=== PATIENT | male | born 1970 | race Caucasian/White ===

== ENCOUNTER → 2016-11-04 | Outpatient (CLI) | payer MEDICAID ==
[2016-11-04 08:26] LABS: ALT 56 U/L (21-72); AST 42 U/L (17-59); Anion Gap 10 mmol/L; Blood Urea Nitrogen 18 mg/dL (9-20); Calcium 9.5 mg/dL (8.4-10.2); Carbon Dioxide 30 mmol/L (22-30); Chloride 103 mmol/L (98-107); Cholesterol 269 mg/dL (<200); Creatine Kinase 123 U/L (55-170); Glucose 87 mg/dL (74-99); HDL Cholesterol 58 mg/dL (40-60); Non-African American GFR(MDRD) >60 (>60 ml/min/1.73 sqM); Potassium 4.9 mmol/L (3.5-5.1); Sodium 143 mmol/L (137-145); Triglycerides 150 mg/dL (<150)
== END | disposition home or self-care (01) ==
LOC: LABWHC1 07:26
PROVIDERS: ATTEND Internal Medicine
DX: E78.00 Pure hypercholesterolemia, unspecified (principal)
CPT/HCPCS: 36415; 80048; 80061; 82550; 84450; 84460

== ENCOUNTER → 2016-12-30 | Outpatient (CLI) | payer MEDICAID ==
[2016-12-30 10:13] LABS: ALT 41 U/L (21-72); AST 47 U/L (17-59); Alkaline Phosphatase 50 U/L (38-126); Anion Gap 10 mmol/L; Blood Urea Nitrogen 20 mg/dL (9-20); Calcium 9.4 mg/dL (8.4-10.2); Carbon Dioxide 29 mmol/L (22-30); Chloride 101 mmol/L (98-107); Cholesterol 205 mg/dL (<200); Creatine Kinase 279 U/L (55-170); Glucose 89 mg/dL (74-99); HDL Cholesterol 74 mg/dL (40-60); Non-African American GFR(MDRD) >60 (>60 ml/min/1.73 sqM); Potassium 4.9 mmol/L (3.5-5.1); Sodium 140 mmol/L (137-145); Triglycerides 85 mg/dL (<150)
== END | disposition home or self-care (01) ==
LOC: LABWHC1 08:48
PROVIDERS: ATTEND Internal Medicine
DX: E78.00 Pure hypercholesterolemia, unspecified (principal)
CPT/HCPCS: 36415; 80053; 80061; 82550

== ENCOUNTER → 2017-04-16 | Outpatient (CLI) | payer MEDICAID ==
--- NOTE | 2017-04-16 15:00 | XR ---
EXAMINATION TYPE: XR cervical spine comp DATE OF EXAM: 04/16/2017 TECHNIQUE: Frontal, lateral, oblique, and open mouth view of the cervical spine are obtained. HISTORY: M47.897 spondylosis per order . Chronic left arm numbness per patient. COMPARISON: None FINDINGS: The cervical spine is visualized in its entirety from C1 thru the top of T1 level, it is s traightened in alignment without evidence of acute fracture or dislocation. There is grade 1 retrolis thesis of C5 on C6. The pre-vertebral soft tissue appears within normal limits. The C1-C2 articulati on is within normal limits on the open mouth view. Vertebral body heights are maintained. There is moderate to advanced disc space narrowing with mild s purring at C5-C6 level. There is mild spurring and disc space narrowing C6-C7 level The oblique image s show bilateral neural foraminal narrowing C5-C6 level left greater than right. Overlying soft tissu e is unremarkable. IMPRESSION: Straightening of cervical spine with spondylolisthesis and most prominent degenerative ch christiano C5-C6 level noted.
--- NOTE | 2017-04-16 15:00 | XR ---
EXAMINATION TYPE: XR lumbosacral spine min 4V DATE OF EXAM: 04/16/2017 CLINICAL HISTORY: pain COMPARISON: NONE TECHNIQUE: Frontal, lateral, and oblique images of the lumbar spine are obtained. FINDINGS: There are 5 lumbar type vertebral bodies identified. The lumbar spine shows satisfactory alignment without evidence of acute fracture or dislocation. Vertebral body heights are within normal limits. Disc spaces are moderately narrowed. Scattered ventral spondylosis and lower lumbar facet breezy int arthropathy. The overlying soft tissue appears unremarkable. IMPRESSION: No acute fracture or dislocation is seen in the lumbar spine.ICD 10 NO FRACTURE, INITIAL EVALUATION
== END | disposition home or self-care (01) ==
LOC: RADXRMAIN 14:21
PROVIDERS: ATTEND Internal Medicine
DX: M43.12 Spondylolisthesis, cervical region (principal); M47.812 Spondylosis without myelopathy or radiculopathy, cervical region; M47.897 Other spondylosis, lumbosacral region
CPT/HCPCS: 72050; 72110

== ENCOUNTER → 2017-04-30 | Outpatient (CLI) | payer MEDICAID ==
--- NOTE | 2017-04-30 17:37 | MR ---
EXAMINATION TYPE: MR cervical spine wo con DATE OF EXAM: 04/30/2017 COMPARISON: Plain film 04/16/2017 HISTORY: Neck Pain x10 years M 47.892 TECHNIQUE: Multiplanar, multisequence images of the cervical spine were acquired. C2-C3: No evidence for degenerative disc disease. No disc bulge/herniation or protrusion. No Canal stenosis. Foramina are patent bilaterally. C3-C4: No evidence for degenerative disc disease. No disc bulge/herniation or protrusion. No Canal stenosis. Foramina are patent bilaterally. C4-C5: No evidence for degenerative disc disease. No disc bulge/herniation or protrusion. No Canal stenosis. Foramina are patent bilaterally. C5-C6: Posterior extension of endplate disc complex causes anterior mass effect on the thecal sac. Fo raminal encroachment is present left greater than right. There is lateral extension of endplate disc complex towards the left neural foramen. No significant central stenosis. C6-C7: Left posterior paracentral subligamentous disc herniation causes mass effect on the anterior c ervical cord, moderate central canal stenosis. Mild bilateral foraminal encroachment is present. C7-T1: No evidence for degenerative disc disease. No disc bulge/herniation or protrusion. No Canal stenosis. Foramina are patent bilaterally. Cervical segments are intact. There is normal alignment. Cervical spinal cord is of normal signal. Craniovertebral junction relationships are within normal limits. Cervical vertebral bodies show pre served height. Spondylosis is present at C5-6 with endplate discogenic marrow signal change greater t pinto C6-7. There is associated loss of disc height and signal greatest at C5-6 and C6-7. IMPRESSION: Degenerative disc disease as scribed. Disc herniation C6-7. Endplate disc complex C5-6.
== END | disposition home or self-care (01) ==
LOC: RADMRIMAIN 16:41
PROVIDERS: ATTEND Internal Medicine
DX: M50.223 Other cervical disc displacement at C6-C7 level (principal); M50.30 Other cervical disc degeneration, unspecified cervical region
CPT/HCPCS: 72141

== ENCOUNTER → 2017-06-24 | Outpatient (CLI) | payer MEDICAID ==
[2017-06-24 09:08] LABS: Basophils % (A) 1 %; CH 29.6; CHCM 34.3; Eosinophils # (A) 0.2 k/uL (0-0.7); Eosinophils % (A) 3 %; HCT 44.3 % (39.0-53.0); HDW 2.71; HGB 14.9 gm/dL (13.0-17.5); Luc # (Auto) 0.17; Luc % (Auto) 3; Lymphocytes # (A) 2.1 k/uL (1.0-4.8); Lymphocytes % (A) 37 %; MCH 29.1 pg (25.0-35.0); MCHC 33.6 g/dL (31.0-37.0); MCV 86.7 fL (80.0-100.0); Mean Platelet Volume 6.5; Monocytes # (A) 0.3 k/uL (0-1.0); Monocytes % (A) 6 %; Neutrophils # (A) 2.8 k/uL (1.3-7.7); Neutrophils % (A) 51 %; RBC 5.12 m/uL (4.30-5.90); RDW 12.6 % (11.5-15.5); WBC 5.6 k/uL (3.8-10.6); WBC (Perox) 5.83
[2017-06-24 09:27] LABS: ALT 53 U/L (21-72); AST 40 U/L (17-59); Alkaline Phosphatase 64 U/L (38-126); Anion Gap 11 mmol/L; Blood Urea Nitrogen 18 mg/dL (9-20); Calcium 9.1 mg/dL (8.4-10.2); Carbon Dioxide 27 mmol/L (22-30); Chloride 104 mmol/L (98-107); Cholesterol 202 mg/dL (<200); Creatine Kinase 163 U/L (55-170); Glucose 81 mg/dL (74-99); HDL Cholesterol 73 mg/dL (40-60); Non-African American GFR(MDRD) >60 (>60 ml/min/1.73 sqM); Potassium 4.7 mmol/L (3.5-5.1); Sodium 142 mmol/L (137-145); Total Bilirubin 0.5 mg/dL (0.2-1.3); Total Protein 7.8 g/dL (6.3-8.2)
== END | disposition home or self-care (01) ==
LOC: LABWHC1 08:35
PROVIDERS: ATTEND Internal Medicine
DX: E78.00 Pure hypercholesterolemia, unspecified (principal); J30.9 Allergic rhinitis, unspecified
CPT/HCPCS: 36415; 80053; 80061; 82550; 83036; 84439; 84443; 85025

== ENCOUNTER → 2017-08-10 | Outpatient (CLI) | payer MEDICAID ==
[2017-08-10 10:09] LABS: Basophils % (A) 1 %; CH 29.2; CHCM 33.7; Eosinophils # (A) 0.1 k/uL (0-0.7); Eosinophils % (A) 3 %; HCT 46.3 % (39.0-53.0); HDW 2.58; HGB 14.8 gm/dL (13.0-17.5); Luc % (Auto) 2; Lymphocytes # (A) 1.4 k/uL (1.0-4.8); Lymphocytes % (A) 27 %; MCH 27.8 pg (25.0-35.0); MCHC 31.9 g/dL (31.0-37.0); MCV 87.1 fL (80.0-100.0); Mean Platelet Volume 7.1; Monocytes # (A) 0.3 k/uL (0-1.0); Monocytes % (A) 6 %; Neutrophils # (A) 3.4 k/uL (1.3-7.7); Neutrophils % (A) 63 %; RBC 5.32 m/uL (4.30-5.90); RDW 13.8 % (11.5-15.5); WBC 5.4 k/uL (3.8-10.6); WBC (Perox) 5.39
[2017-08-10 10:15] LABS: Appearance,Urine Clear (Clear); Bilirubin,Urine Negative (Negative); Glucose,Urine (UA) Negative (Negative); Ketones,Urine Negative (Negative); Leukocyte Esterase,Urine Negative (Negative); Nitrite,Urine Negative (Negative); Protein,Urine Negative (Negative); Specific Gravity,Urine 1.015 (1.001-1.035); UA Billing (MACRO vs. MICRO) CHEM; Urobilinogen,Urine <2.0 mg/dL (<2.0)
[2017-08-10 11:44] LABS: ALT 41 U/L (21-72); AST 37 U/L (17-59); Alkaline Phosphatase 51 U/L (38-126); Anion Gap 8 mmol/L; Blood Urea Nitrogen 17 mg/dL (9-20); Calcium 9.5 mg/dL (8.4-10.2); Carbon Dioxide 29 mmol/L (22-30); Chloride 104 mmol/L (98-107); Cholesterol 154 mg/dL (<200); Creatine Kinase 155 U/L (55-170); Glucose 87 mg/dL (74-99); HDL Cholesterol 58 mg/dL (40-60); Non-African American GFR(MDRD) >60 (>60 ml/min/1.73 sqM); Potassium 4.8 mmol/L (3.5-5.1); Sodium 141 mmol/L (137-145); Total Bilirubin 0.6 mg/dL (0.2-1.3); Total Protein 7.4 g/dL (6.3-8.2); Uric Acid 5.6 mg/dL (3.5-8.5)
[2017-08-10 12:07] LABS: Prostate Specific Antigen 0.47 ng/mL (0.00-4.00)
== END | disposition home or self-care (01) ==
LOC: LABWHC1 09:00
PROVIDERS: ATTEND Internal Medicine
DX: E78.00 Pure hypercholesterolemia, unspecified (principal); E23.0 Hypopituitarism; N40.0 Benign prostatic hyperplasia without lower urinary tract symptoms; M47.893 Other spondylosis, cervicothoracic region
CPT/HCPCS: 36415; 80053; 80061; 81003; 82306; 82550; 83036; 84153; 84402; 84403; 84439; 84550; 85025

== ENCOUNTER → 2018-01-26 | Outpatient (CLI) | payer MEDICAID ==
--- NOTE | 2018-01-26 14:37 | MR ---
EXAMINATION TYPE: MR shoulder LT wo con DATE OF EXAM: 01/26/2018 COMPARISON: NONE HISTORY: 47-year-old male with left shoulder pain TECHNIQUE: Multiplanar, multisequence imaging of the left shoulder is performed without contrast. FINDINGS: There is abnormal linear signal within the intracapsular portion of the long head biceps tendon. Mild tenosynovial fluid is present along the bicipital groove. There is some thickening of the coracohumeral ligament and soft tissue replacement in the rotator cuf f interval. The axillary recess is mildly thickened at 6 mm and there is also prominent thickening of the middle glenohumeral ligament at 4 mm, refer to sagittal image 19. Trace fluid versus mild thickening of the subdeltoid bursa. There is bursal sided fraying of the mid supraspinatus tendon without discrete supraspinatus or infra spinatus tendon tear. The majority of the subscapularis tendon is intact. No atrophy of the rotator cuff musculature. There is some linear signal in the posterior inferior glenoid labrum with mild glenoid dysplasia jayden g the posterior-inferior corner. Tiny 2 mm posterior glenoid paralabral cyst and additional tiny 3 mm cyst along the anterior margin of the glenoid. There is a third 6 mm paralabral cyst along the anter ior inferior glenoid. Moderate to severe degenerative joint space narrowing with marginal spurring and capsular hypertrophy at the acromioclavicular joint. Inferior spurring has mild mass effect onto the underlying myotendin ous junction of the supraspinatus. Small shoulder joint effusion. No discrete cartilage injury seen. No Hill-Sachs deformity or os acromiale. Patchy red marrow is present without suspicious bone marrow replacement. IMPRESSION: 1. There is moderate to severe AC joint OA with mild impingement onto the underlying cuff. Minimal bu rsal sided fraying of the mid supraspinatous tendon is present without discrete rotator cuff tear. 2. Mild glenoid dysplasia and findings suggestive of a U-shaped labral tear along the inferior half o f the glenoid with approximately 3 small paralabral cysts measuring up to 6 mm. 3. Some soft tissue replacement in the rotator cuff interval with thickening of the coracohumeral, mi ddle glenohumeral, and inferior glenohumeral ligaments. Correlate for chronic ligamentous sprains melissa peace adhesive capsulitis. 4. Linear signal in the intracapsular portion of the long head biceps tendon suggests a small split t ear.
== END | disposition home or self-care (01) ==
LOC: RADMRIMAIN 11:45
PROVIDERS: ATTEND Orthopaedic Surgery
DX: M19.012 Primary osteoarthritis, left shoulder (principal); M67.814 Other specified disorders of tendon, left shoulder

== ENCOUNTER → 2018-02-08 | Outpatient (CLI) | payer MEDICAID ==
[2018-02-08 09:40] LABS: Basophils % (A) 1 %; Eosinophils # (A) 0.2 k/uL (0-0.7); Eosinophils % (A) 2 %; HCT 43.9 % (39.0-53.0); HGB 14.9 gm/dL (13.0-17.5); Lymphocytes # (A) 1.9 k/uL (1.0-4.8); Lymphocytes % (A) 25 %; MCHC 33.9 g/dL (31.0-37.0); MCV 85.7 fL (80.0-100.0); Mean Platelet Volume 6.4; Monocytes # (A) 0.4 k/uL (0-1.0); Monocytes % (A) 6 %; Neutrophils # (A) 4.8 k/uL (1.3-7.7); Neutrophils % (A) 65 %; Platelet Count 222 k/uL (150-450); RBC 5.12 m/uL (4.30-5.90); RDW 12.9 % (11.5-15.5); WBC 7.3 k/uL (3.8-10.6)
[2018-02-08 09:41] LABS: Appearance,Urine Clear (Clear); Bilirubin,Urine Negative (Negative); Blood,Urine Negative (Negative); Color,Urine Yellow; Glucose,Urine (UA) Negative (Negative); Ketones,Urine Negative (Negative); Leukocyte Esterase,Urine Negative (Negative); Nitrite,Urine Negative (Negative); PH, Urine 6.5 (5.0-8.0); Protein,Urine Trace (Negative); Specific Gravity,Urine 1.021 (1.001-1.035); Urobilinogen,Urine <2.0 mg/dL (<2.0)
[2018-02-08 12:00] LABS: ALT 81 U/L (21-72); AST 51 U/L (17-59); Albumin 4.2 g/dL (3.5-5.0); Alkaline Phosphatase 50 U/L (38-126); Anion Gap 11 mmol/L; Blood Urea Nitrogen 18 mg/dL (9-20); Calcium 9.5 mg/dL (8.4-10.2); Carbon Dioxide 30 mmol/L (22-30); Chloride 102 mmol/L (98-107); Cholesterol 198 mg/dL (<200); Creatine Kinase 224 U/L (55-170); Glucose 86 mg/dL (74-99); HDL Cholesterol 77 mg/dL (40-60); LDL Cholesterol,Calculated 87 mg/dL (0-99); Potassium 4.3 mmol/L (3.5-5.1); Sodium 143 mmol/L (137-145); Total Bilirubin 0.6 mg/dL (0.2-1.3); Total Protein 7.1 g/dL (6.3-8.2); Triglycerides 169 mg/dL (<150)
[2018-02-08 12:17] LABS: T4, Free (Free Thyroxine) 0.96 ng/dL (0.78-2.19)
[2018-02-08 18:25] LABS: Hemoglobin A1C 5.2 % (4.0-6.0)
== END | disposition home or self-care (01) ==
LOC: LABWHC1 09:11
PROVIDERS: ATTEND Internal Medicine
DX: E78.00 Pure hypercholesterolemia, unspecified (principal); E23.0 Hypopituitarism; R79.9 Abnormal finding of blood chemistry, unspecified; R00.1 Bradycardia, unspecified; N40.1 Benign prostatic hyperplasia with lower urinary tract symptoms
CPT/HCPCS: 36415; 80053; 80061; 81003; 82550; 83036; 84439; 84443; 85025

== ENCOUNTER → 2018-04-05 | Outpatient (CLI) | payer MEDICAID ==
[2018-04-05 09:24] LABS: Basophils % (A) 0 %; Eosinophils # (A) 0.1 k/uL (0-0.7); Eosinophils % (A) 2 %; HCT 44.8 % (39.0-53.0); Lymphocytes # (A) 1.4 k/uL (1.0-4.8); Lymphocytes % (A) 25 %; MCH 28.7 pg (25.0-35.0); MCHC 33.4 g/dL (31.0-37.0); MCV 85.9 fL (80.0-100.0); Mean Platelet Volume 6.4; Monocytes # (A) 0.4 k/uL (0-1.0); Monocytes % (A) 7 %; Neutrophils # (A) 3.6 k/uL (1.3-7.7); Neutrophils % (A) 63 %; Platelet Count 231 k/uL (150-450); RBC 5.22 m/uL (4.30-5.90); RDW 13.1 % (11.5-15.5); WBC 5.7 k/uL (3.8-10.6)
[2018-04-05 09:28] LABS: Partial Thromboplastin Time 24.8 sec (22.0-30.0); Prothrombin Time 10.3 sec (9.0-12.0)
[2018-04-05 09:32] LABS: Appearance,Urine Clear (Clear); Bilirubin,Urine Negative (Negative); Blood,Urine Negative (Negative); Color,Urine Yellow; Glucose,Urine (UA) Negative (Negative); Ketones,Urine Negative (Negative); Leukocyte Esterase,Urine Negative (Negative); Nitrite,Urine Negative (Negative); PH, Urine 7.5 (5.0-8.0); Protein,Urine Negative (Negative); Specific Gravity,Urine 1.015 (1.001-1.035); Urobilinogen,Urine <2.0 mg/dL (<2.0)
[2018-04-05 09:40] LABS: ALT 45 U/L (21-72); AST 41 U/L (17-59); Albumin 4.3 g/dL (3.5-5.0); Alkaline Phosphatase 53 U/L (38-126); Anion Gap 8 mmol/L; Blood Urea Nitrogen 23 mg/dL (9-20); Calcium 9.4 mg/dL (8.4-10.2); Carbon Dioxide 28 mmol/L (22-30); Chloride 103 mmol/L (98-107); Glucose 93 mg/dL (74-99); Potassium 4.9 mmol/L (3.5-5.1); Sodium 139 mmol/L (137-145); Total Bilirubin 0.6 mg/dL (0.2-1.3); Total Protein 7.1 g/dL (6.3-8.2)
== END | disposition home or self-care (01) ==
LOC: LABWHC1 08:41
PROVIDERS: ATTEND Internal Medicine
DX: Z01.812 Encounter for preprocedural laboratory examination (principal)
CPT/HCPCS: 36415; 80053; 81003; 85025; 85610; 85730

== ENCOUNTER → 2018-06-17 | Outpatient (CLI) | payer MEDICAID ==
--- NOTE | 2018-06-17 16:51 | XR ---
EXAMINATION TYPE: XR foot complete RT DATE OF EXAM: 06/17/2018 COMPARISON: NONE HISTORY: 48-year-old male right great toe MTP joint sprain, pain TECHNIQUE: Reviews FINDINGS: Mild degenerative joint space narrowing and marginal spurring at the first MTP joint. No acute fractu re, subluxation, or dislocation. Tiny plantar calcaneal spur. IMPRESSION: Mild first MTP joint OA. No acute osseous abnormality seen.
== END | disposition home or self-care (01) ==
LOC: RADXRMAIN 12:22
PROVIDERS: ATTEND Internal Medicine
DX: M19.91 Primary osteoarthritis, unspecified site (principal); S93.52 Sprain of metatarsophalangeal joint of toe

== ENCOUNTER → 2019-01-25 | Outpatient (CLI) | payer MEDICAID ==
[2019-01-25 08:05] LABS: Basophils % (A) 1 %; Eosinophils # (A) 0.2 k/uL (0-0.7); Eosinophils % (A) 4 %; HCT 44.5 % (39.0-53.0); HGB 14.6 gm/dL (13.0-17.5); Lymphocytes # (A) 1.9 k/uL (1.0-4.8); Lymphocytes % (A) 36 %; MCH 28.9 pg (25.0-35.0); MCHC 32.9 g/dL (31.0-37.0); MCV 87.9 fL (80.0-100.0); Mean Platelet Volume 6.7; Monocytes # (A) 0.3 k/uL (0-1.0); Monocytes % (A) 6 %; Neutrophils # (A) 2.7 k/uL (1.3-7.7); Neutrophils % (A) 50 %; Platelet Count 221 k/uL (150-450); RBC 5.06 m/uL (4.30-5.90); RDW 13.1 % (11.5-15.5); WBC 5.4 k/uL (3.8-10.6)
[2019-01-25 10:47] LABS: Albumin 4.4 g/dL (3.80-4.90); Albumin/Globulin Ratio 1.83 (1.60-3.17); Anion Gap 6.9 mmol/L (4.00-12.00); Calcium 9.1 mg/dL (8.7-10.3); Carbon Dioxide 31.1 mmol/L (21.6-31.8); Globulin 2.4 g/dL (1.6-3.3); LDL Cholesterol,Calculated 127.8 mg/dL (0.0-131.0); Potassium 4.4 mmol/L (3.5-5.5); Total Bilirubin 0.5 mg/dL (0.2-1.2); Total Protein 6.8 g/dL (6.2-8.2); VLDL Calculation 56.2 mg/dL (5.00-40.00)
[2019-01-25 11:49] LABS: Folate, Serum 23.2 ng/mL
[2019-01-25 15:33] LABS: Hemoglobin A1C 5.3 % (4.0-6.0)
== END | disposition home or self-care (01) ==
LOC: LABWHC1 06:47
PROVIDERS: ATTEND Internal Medicine
DX: E78.5 Hyperlipidemia, unspecified (principal); R20.2 Paresthesia of skin
CPT/HCPCS: 36415; 80053; 80061; 82550; 82607; 82746; 83036; 84443; 85025

== ENCOUNTER → 2019-06-06 | Outpatient (CLI) | payer MEDICAID ==
[2019-06-06 16:12] LABS: African American GFR (CKD) 101.3 (60.0-200.0); Albumin 4.5 g/dL (3.80-4.90); Albumin/Globulin Ratio 1.88 (1.60-3.17); Anion Gap 7.2 mmol/L (4.00-12.00); Calcium 9.5 mg/dL (8.7-10.3); Carbon Dioxide 30.8 mmol/L (21.6-31.8); Chol/HDL Ratio 3.07; Globulin 2.4 g/dL (1.6-3.3); LDL Cholesterol,Calculated 127.6 mg/dL (0.0-131.0); Potassium 4.7 mmol/L (3.5-5.5); Total Bilirubin 0.5 mg/dL (0.2-1.2); Total Protein 6.9 g/dL (6.2-8.2); VLDL Calculation 23.4 mg/dL (5.00-40.00)
== END | disposition home or self-care (01) ==
LOC: LABWHC1 08:03
PROVIDERS: ATTEND Internal Medicine
DX: E78.2 Mixed hyperlipidemia (principal); N40.1 Benign prostatic hyperplasia with lower urinary tract symptoms
CPT/HCPCS: 36415; 80053; 80061; 82550; 84146

== ENCOUNTER → 2020-12-26 | Outpatient (CLI) | payer BC ==
[2020-12-26 15:57] LABS: Basophils # (A) 0.03 X 10*3/uL (0.00-0.10); Basophils % (A) 0.5 %; Eosinophils # (A) 0.16 X 10*3/uL (0.04-0.35); Eosinophils % (A) 2.8 %; HCT 44.1 % (39.6-50.0); HGB 14.6 g/dL (13.0-17.0); Lymphocytes % (A) 31.3 %; MCH 28.7 pg (27.0-32.0); MCHC 33.1 g/dL (32.0-37.0); MCV 86.6 fL (80.0-97.0); Mean Platelet Volume 9.8 fL (9.5-12.2); Monocytes # (A) 0.52 X 10*3/uL (0.20-1.00); Neutrophils # (A) 3.23 X 10*3/uL (1.80-7.70); Neutrophils % (A) 56.1 %; Platelet Count 239 X 10*3/uL (140-440); RBC 5.09 X 10*6/uL (4.40-5.60); RDW 12.5 % (11.5-14.5); WBC 5.76 X 10*3/uL (4.50-10.00)
[2020-12-26 21:22] LABS: African American GFR (CKD) 80.7 (60.0-200.0); Albumin 4.6 g/dL (3.80-4.90); Albumin/Globulin Ratio 1.64 (1.60-3.17); Anion Gap 10.2 mmol/L (4.00-12.00); Calcium 9.3 mg/dL (8.7-10.3); Carbon Dioxide 26.8 mmol/L (21.6-31.8); Chol/HDL Ratio 3.44; Globulin 2.8 g/dL (1.6-3.3); Non-African American GFR(CKD) 69.6 (60.0-200.0); Potassium 4.5 mmol/L (3.5-5.5); Total Bilirubin 0.6 mg/dL (0.3-1.2); Total Protein 7.4 g/dL (6.2-8.2)
== END | disposition home or self-care (01) ==
LOC: LABWHC1 08:29
PROVIDERS: ATTEND Internal Medicine
DX: Z00.00 Encounter for general adult medical examination without abnormal findings (principal); N40.0 Benign prostatic hyperplasia without lower urinary tract symptoms; E78.2 Mixed hyperlipidemia
CPT/HCPCS: 36415; 80053; 80061; 84153; 84443; 85025

== ENCOUNTER 2020-12-31 07:38 | Day surgery (SDC) | payer BC, MEDICAID ==
[2020-12-27 09:27] VITALS: BMI 27.8
[~2020-12-31 07:38] MED LIST: LACTATED RINGERS 1,000 ML IV SCH; LIDOCAINE 1% (10MG/ML) FOR IV START INTRADERMA PRN
[2020-12-31 08:06] VITALS: RESP 16; TEMP 97.5
[2020-12-31] MEDS ORDERED: PROPOFOL 10 MG/ML 20 ML VIAL IV ONE (08:47)
--- NOTE | 2020-12-31 09:14 | P.PCN ---
Date of Procedure: 12/31/20 Description of Procedure: BRIEF HISTORY: Patient is a 50-year-old male presents for outpatient colonoscopy for screening for malignant neoplasm colon. No prior colonoscopy. No change in bowel habits or blood per rectum. No family history of colon cancer. PROCEDURE PERFORMED: Colonoscopy with polypectomy. PREOPERATIVE DIAGNOSIS: Screening for malignant neoplasm in the colon, no prior colonoscopy. ESTIMATED BLOOD LOSS: Minimal. IV sedation per Anesthesia. PROCEDURE: After informed consent was obtained, the patient, was brought into the endoscopy unit. IV sedation was administered by Anesthesia under continuous monitoring. Digital rectal examination was normal. Initially the Olympus CF-190 flexible video colonoscope was then inserted in the rectum, gradually advanced into the cecum without any difficulty. Careful examination was performed as the scope was gradually being withdrawn. Ileocecal valve and the appendiceal orifice were visualized and appeared normal. Prep was excellent. Mucosa of the cecum, ascending colon, transverse colon, descending colon, sigmoid colon, and rectum appeared normal. A flat tubulovillous appearing 11 mm polyp in the cecum removed with cold snare polypectomy. Retroflexion was performed in the rectum and no lesions were seen, internal hemorrhoids noted. The patient tolerated the procedure well. IMPRESSION: Broad-based cecal polyp removed with cold snare polypectomy. Internal hemorrhoids. RECOMMENDATIONS: Findings of this examination were discussed with the patient and his family. Okay to resume diet. Okay to resume medications. Await pathology from polypectomy. Recommend repeat colonoscopy in 3 years for colon polyps and the pathology from polypectomy.
[2020-12-31 09:33] VITALS: BP 123/85; PULSE 72
== END 2020-12-31 09:50 | disposition home or self-care (01) ==
LOC: ORWHC2ENDO 07:38
PROVIDERS: ATTEND Internal Medicine
DX: Z12.11 Encounter for screening for malignant neoplasm of colon (principal); D12.0 Benign neoplasm of cecum; K64.8 Other hemorrhoids; E78.5 Hyperlipidemia, unspecified; Z88.0 Allergy status to penicillin
CPT/HCPCS: 88305; 45385; J2704

== ENCOUNTER → 2021-10-16 | Outpatient (CLI) | payer BC ==
[2021-10-16 14:24] LABS: Basophils # (A) 0.03 X 10*3/uL (0.00-0.10); Basophils % (A) 0.5 %; Eosinophils # (A) 0.14 X 10*3/uL (0.04-0.35); Eosinophils % (A) 2.3 %; HCT 43.8 % (39.6-50.0); HGB 14.3 g/dL (13.0-17.0); Lymphocytes # (A) 1.94 X 10*3/uL (0.90-5.00); Lymphocytes % (A) 32.2 %; MCH 28.3 pg (27.0-32.0); MCHC 32.6 g/dL (32.0-37.0); MCV 86.7 fL (80.0-97.0); Mean Platelet Volume 9.9 fL (9.5-12.2); Monocytes # (A) 0.55 X 10*3/uL (0.20-1.00); Monocytes % (A) 9.1 %; Neutrophils # (A) 3.36 X 10*3/uL (1.80-7.70); Neutrophils % (A) 55.7 %; Platelet Count 240 X 10*3/uL (140-440); RBC 5.05 X 10*6/uL (4.40-5.60); RDW 12.5 % (11.5-14.5); WBC 6.03 X 10*3/uL (4.50-10.00)
[2021-10-16 16:22] LABS: Appearance,Urine Clear (Clear); Color,Urine Yellow (Yellow); Specific Gravity,Urine 1.026 (1.001-1.030)
[2021-10-16 18:33] LABS: ALT 36 U/L (10-49); AST 35 U/L (14-35); African American GFR (CKD) 87.1 (60.0-200.0); Albumin 4.5 g/dL (3.8-4.9); Albumin/Globulin Ratio 1.47 (1.60-3.17); Alkaline Phosphatase 73 U/L (41-126); BUN/Creat Ratio 18.93 Ratio (12.00-20.00); Blood Urea Nitrogen 21.2 mg/dL (9.0-27.0); Calcium 9.1 mg/dL (8.7-10.3); Carbon Dioxide 22.9 mmol/L (20.0-27.5); Chloride 102 mmol/L (96-109); Chol/HDL Ratio 3.35 Ratio; Glucose 87 mg/dL (70-110); LDL Cholesterol,Calculated 119.8 mg/dL (0.0-131.0); Non-African American GFR(CKD) 75.1 (60.0-200.0); Potassium 4.3 mmol/L (3.5-5.5); Sodium 140 mmol/L (135-145); Total Protein 7.5 g/dL (6.2-8.2); VLDL Calculation 15.56 mg/dL (5.00-40.00)
== END | disposition home or self-care (01) ==
LOC: LABWHC1 07:54
PROVIDERS: ATTEND Internal Medicine
DX: Z00.00 Encounter for general adult medical examination without abnormal findings (principal); N40.0 Benign prostatic hyperplasia without lower urinary tract symptoms
CPT/HCPCS: 36415; 80053; 80061; 81003; 84153; 84443; 85025

== ENCOUNTER → 2022-08-25 | Outpatient (CLI) | payer BC ==
[2022-08-25 18:10] LABS: Basophils # (A) 0.03 X 10*3/uL (0.00-0.10); Basophils % (A) 0.4 %; Eosinophils # (A) 0.12 X 10*3/uL (0.04-0.35); Eosinophils % (A) 1.5 %; HCT 44.6 % (39.6-50.0); HGB 14.8 g/dL (13.0-17.0); Immature Grans, Automated 0.5 %; Lymphocytes # (A) 1.67 X 10*3/uL (0.90-5.00); Lymphocytes % (A) 21.2 %; MCH 28.4 pg (27.0-32.0); MCHC 33.2 g/dL (32.0-37.0); MCV 85.6 fL (80.0-97.0); Mean Platelet Volume 9.1 fL (9.5-12.2); Monocytes # (A) 0.74 X 10*3/uL (0.20-1.00); Monocytes % (A) 9.4 %; NRBC Per 100 WBC 0 /100 WBCS (0.0-0.0); Neutrophils # (A) 5.26 X 10*3/uL (1.80-7.70); Platelet Count 252 X 10*3/uL (140-440); RBC 5.21 X 10*6/uL (4.40-5.60); RDW 12.6 % (11.5-14.5); WBC 7.86 X 10*3/uL (4.50-10.00)
[2022-08-25 19:21] LABS: ALT 63 U/L (10-49); AST 40 U/L (14-35); African American GFR (CKD) 99.1 (60.0-200.0); Blood Urea Nitrogen 18.7 mg/dL (9.0-27.0); Calcium 9.7 mg/dL (8.7-10.3); Carbon Dioxide 26.7 mmol/L (20.0-27.5); Chloride 98 mmol/L (96-109); Creatine Kinase 233 U/L (35-257); Glucose 85 mg/dL (70-110); Non-African American GFR(CKD) 85.5 (60.0-200.0); Potassium 4.6 mmol/L (3.5-5.5); Sodium 138 mmol/L (135-145); Uric Acid 6.3 mg/dL (3.7-8.7)
[2022-08-25 20:36] LABS: Cyclic Citrull Pep IgG Unit <0.5 U/mL; Cyclic Citrullinated Pep IgG NEGATIVE (NEGATIVE)
[2022-08-25 20:49] LABS: Erythrocyte Sedimentation Rate 14 mm/Hr (0-20)
[2022-08-26 10:51] LABS: HLA B27 NEGATIVE
[2022-08-26 11:52] LABS: Angiotensin-1 Converting Enz. 37 U/L (8-52)
[2022-08-26 13:34] LABS: Rheumatoid Factor, Qnt <10 IU/mL (0-15)
== END | disposition home or self-care (01) ==
LOC: LABWHC1 11:53
PROVIDERS: ATTEND Orthopaedic Surgery
DX: M54.12 Radiculopathy, cervical region (principal); M50.80 Other cervical disc disorders, unspecified cervical region; M25.512 Pain in left shoulder; M25.511 Pain in right shoulder
CPT/HCPCS: 36415; 80048; 82164; 82306; 82550; 83520; 84439; 84443; 84450; 84460; 84550; 85025; 85652; 86038; 86140; 86200; 86431; 86812

== ENCOUNTER → 2023-01-21 | Outpatient (CLI) | payer BC ==
[2023-01-21 10:59] LABS: Basophils # (A) 0.03 X 10*3/uL (0.00-0.10); Basophils % (A) 0.5 %; Eosinophils # (A) 0.15 X 10*3/uL (0.04-0.35); Eosinophils % (A) 2.5 %; HGB 14.3 g/dL (13.0-17.0); Immature Grans, Automated 0.3 %; Lymphocytes # (A) 2.03 X 10*3/uL (0.90-5.00); Lymphocytes % (A) 33.3 %; MCH 28.1 pg (27.0-32.0); MCHC 33.3 g/dL (32.0-37.0); MCV 84.5 fL (80.0-97.0); Mean Platelet Volume 9.4 fL (9.5-12.2); Monocytes # (A) 0.63 X 10*3/uL (0.20-1.00); Monocytes % (A) 10.3 %; NRBC Per 100 WBC 0 /100 WBCS (0.0-0.0); Neutrophils # (A) 3.24 X 10*3/uL (1.80-7.70); Neutrophils % (A) 53.1 %; Platelet Count 232 X 10*3/uL (140-440); RBC 5.09 X 10*6/uL (4.40-5.60); RDW 12.6 % (11.5-14.5)
[2023-01-21 11:35] LABS: ALT 25 U/L (10-49); AST 26 U/L (14-35); African American GFR (CKD) 88.4 (60.0-200.0); Albumin 4.4 g/dL (3.8-4.9); Albumin/Globulin Ratio 1.47 (1.60-3.17); Alkaline Phosphatase 75 U/L (41-126); BUN/Creat Ratio 16.91 Ratio (12.00-20.00); Blood Urea Nitrogen 18.6 mg/dL (9.0-27.0); Calcium 9.5 mg/dL (8.7-10.3); Carbon Dioxide 27.5 mmol/L (20.0-27.5); Chloride 103 mmol/L (96-109); Chol/HDL Ratio 4.19 Ratio; Glucose 82 mg/dL (70-110); LDL Cholesterol,Calculated 152.1 mg/dL (0.0-131.0); Non-African American GFR(CKD) 76.2 (60.0-200.0); Potassium 4.5 mmol/L (3.5-5.5); Sodium 141 mmol/L (135-145); Total Protein 7.4 g/dL (6.2-8.2)
[2023-01-21 13:01] LABS: Appearance,Urine Clear (Clear); Bilirubin,Urine Negative (Negative); Blood,Urine Negative (Negative); Color,Urine Yellow (Yellow); Ketones,Urine Negative (Negative); Nitrite,Urine Negative (Negative); PH, Urine 6.5 (5.0-8.0); Specific Gravity,Urine 1.021 (1.001-1.030); Urobilinogen,Urine 0.2 (0.2,1.0)
== END | disposition home or self-care (01) ==
LOC: LABWHC1 07:27
PROVIDERS: ATTEND Internal Medicine
DX: Z00.00 Encounter for general adult medical examination without abnormal findings (principal); E78.2 Mixed hyperlipidemia; N40.0 Benign prostatic hyperplasia without lower urinary tract symptoms
CPT/HCPCS: 36415; 80053; 80061; 81003; 83036; 84153; 84443; 85025

== ENCOUNTER → 2023-02-17 | Outpatient (CLI) | payer BC ==
--- NOTE | 2023-02-18 11:13 | MR ---
EXAMINATION TYPE: MR cervical spine wo/w con DATE OF EXAM: 02/17/2023 COMPARISON: 04/30/2017 HISTORY: Neck and Bilateral Shoulder pain CONTRAST: Performed utilizing 9.5 mL intravenous Gadavist gadolinium contrast. TECHNIQUE: Multiplanar multiecho imaging on a 3.0 Michelle magnet is performed through the cervical spin e. FINDINGS: The craniovertebral junction is normal. Vertebral body alignment is normal. Anterior cer vical fusion is present C5-C7. This causes susceptibility artifact in some limitation in evaluation o f the spinal canal at these levels. Mental compensation was attempted. C7-T1: No focal disc herniation or significant disc bulge is evident. No spinal canal stenosis or n eural foraminal stenosis is present. C6-7: This level is nondiagnostic due to significant susceptibility artifact.. C5-6: There is limitation on this level due to susceptibility artifact. Obvious stenosis however is n ot identified. Anterior spinal canal cannot be well evaluated. C4-5: Others some mild limitation at this level due to susceptibility artifact. No obvious cord defor mity or spinal canal stenosis is present. Uncovertebral joint hypertrophy is present with foraminal n arrowing.. C3-4: No focal disc herniation or significant disc bulge is evident. No spinal canal stenosis or agatha ral foraminal stenosis is present. C2-3: No focal disc herniation or significant disc bulge is evident. No spinal canal stenosis or agatha ral foraminal stenosis is present. No abnormal enhancement is evident within the field of view. IMPRESSIONS: 1. Exam is limited at the C 5-6 and C6-7 levels with milder susceptibility artifact C4-5. Portions of the spinal canal through these levels may be nondiagnostic. 2. Remaining disc levels appear preserved. No recurrent or new disc herniations are identified.
== END | disposition home or self-care (01) ==
LOC: RADMRIMAIN 20:45
PROVIDERS: ATTEND Internal Medicine
DX: M47.812 Spondylosis without myelopathy or radiculopathy, cervical region (principal)
CPT/HCPCS: 72156; A9585

== ENCOUNTER → 2023-10-22 | Outpatient (CLI) | payer BC ==
[2023-10-22 15:19] LABS: Basophils # (A) 0.03 X 10*3/uL (0.00-0.10); Basophils % (A) 0.5 %; Eosinophils # (A) 0.17 X 10*3/uL (0.04-0.35); Eosinophils % (A) 2.7 %; HCT 45.7 % (39.6-50.0); HGB 15.4 g/dL (13.0-17.0); Lymphocytes # (A) 1.88 X 10*3/uL (0.90-5.00); Lymphocytes % (A) 29.7 %; MCH 28.2 pg (27.0-32.0); MCHC 33.7 g/dL (32.0-37.0); MCV 83.5 FL (80.0-97.0); Mean Platelet Volume 9.5 FL (9.5-12.2); Monocytes % (A) 7.9 %; NRBC Per 100 WBC 0 X 10*3/uL (0.00-0.01); Neutrophils # (A) 3.74 X 10*3/uL (1.80-7.70); Neutrophils % (A) 58.9 %; Platelet Count 229 X 10*3/uL (140-440); RBC 5.47 X 10*6/uL (4.40-5.60); RDW 12.7 % (11.5-14.5); WBC 6.34 X 10*3/uL (4.50-10.00)
[2023-10-22 15:39] LABS: ALT 48 U/L (10-49); AST 36 U/L (14-35); Albumin 4.5 g/dL (3.8-4.9); Alkaline Phosphatase 79 U/L (41-126); Calcium 9.5 mg/dL (8.7-10.3); Carbon Dioxide 27.5 mmol/L (21.6-31.8); Chloride 104 mmol/L (96-109); Chol/HDL Ratio 3.96 Ratio; Glucose 94 mg/dL (70-110); LDL Cholesterol,Calculated 125.6 mg/dL (0.0-131.0); Potassium 4.6 mmol/L (3.5-5.5); Sodium 141 mmol/L (135-145); Total Bilirubin 0.4 mg/dL (0.3-1.2); Total Protein 7.5 g/dL (6.2-8.2)
== END | disposition home or self-care (01) ==
LOC: LABWHC1 08:46
PROVIDERS: ATTEND Internal Medicine
DX: E78.2 Mixed hyperlipidemia (principal); M19.079 Primary osteoarthritis, unspecified ankle and foot
CPT/HCPCS: 36415; 80053; 80061; 83036; 84443; 85025

== ENCOUNTER → 2023-12-01 | Outpatient (CLI) | payer BC ==
[2023-12-01 13:33] VITALS: BP 134/81; PULSE 84; RESP 16; TEMP 98.3
--- NOTE | 2023-12-01 14:40 | P.SLEEP ---
History of Present Illness H&P Date: 12/01/23 This is a 53-year-old male patient, who is coming in due to concerns of obstructive sleep apnea. His , a previous [employer] employee, diagnosed having a brain tumor and she has undergone previous treatment and her treatment was further complicated by development of a stroke. She underwent recent investigations at [facility] and she was diagnosed having obstructive sleep apnea. The patient has realized that he has similar symptoms that may potentially indicate obstructive sleep apnea for that reason he came in for further evaluation. He has history of loud snoring. He goes to bed around 11 PM and wakes up at 7 AM in the morning. Occasionally, it takes him more than 30 minutes to fall asleep. Sometimes, he wakes up in the middle of the night and needs having difficulty in sleep reinitiation and he takes Advil PM to help him to fall asleep again. He has occasional grinding. He has been told to stop breathing at night and he occasionally has woken up gasping for air. No nocturia. No sleepwalking. No anxiety or panic attacks. No palpitation. No heartburn. He goes to bed around 11 PM, wakes up 7 AM in the morning. He is currently working from home. 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 As such, is spending a lot of time at home. He occasionally takes naps and these are 30 minutes naps which makes him quite refreshed. Limited exercise. No history of any motor vehicle accidents because of feeling drowsy or sleepy and the patient does not fall asleep behind the wheel. No history of substance abuse. He drinks around 2 to 3 cups of coffee in the morning. No alcoholism. No history of head trauma. No history of stroke. No history of any neurologic disorders. No recent weight gain and his weight has been stable over the past 5 to 10 years in general. There is moderate has obstructive sleep apnea. The patient , hallucinations or cataplexy. denying any sleep paralysis. No history of anxiety. No history of depression. No 69 psychiatric disorder. The patient does not take any home medications. Review of Systems Constitutional: Reports daytime sleepiness, Reports fatigue Eyes: denies as per HPI, denies blurred vision, denies bulging eye, denies decreased vision, denies diplopia, denies discharge, denies dry eye, denies irritation, denies itching, denies pain, denies photophobia, denies loss of peripheral vision, denies loss of vision, denies tunnel vision/blind spots Ears: deny: decreased hearing, ear discharge, earache, tinnitus Ears, nose, mouth and throat: Reports as per HPI Breasts: absent: as per HPI, gynecomastia Cardiovascular: Reports as per HPI Respiratory: Reports snoring Gastrointestinal: Reports as per HPI Genitourinary: Reports as per HPI Musculoskeletal: Reports as per HPI Musculoskeletal: absent: ankle pain, ankle stiffness, ankle swelling Integumentary: Reports as per HPI Neurological: Reports as per HPI Psychiatric: Reports as per HPI Endocrine: Reports as per HPI, Reports fatigue Hematologic/Lymphatic: Reports as per HPI Allergic/Immunologic: Reports as per HPI Past Medical History Past Medical History: No Reported History History of Any Multi-Drug Resistant Organisms: None Reported Past Surgical History: Orthopedic Surgery Additional Past Surgical History / Comment(s): Deviated Septum Past Anesthesia/Blood Transfusion Reactions: No Reported Reaction Past Psychological History: No Psychological Hx Reported Smoking Status: Former smoker Past Alcohol Use History: Occasional Past Drug Use History: None Reported Medications and Allergies Home Medications Medication Instructions Recorded Confirmed Type Aspirin [Adult Low Dose Aspirin EC] 81 mg PO DAILY 08/31/17 12/31/20 History Atorvastatin Calcium [Lipitor] 10 mg PO DAILY 08/31/17 12/31/20 History Multivitamins, Thera [Multivitamin 1 tab PO DAILY 08/31/17 12/31/20 History (formulary)] [place]-3 Fatty Acids/Fish Oil [Fish 1 each PO DAILY 08/31/17 12/31/20 History Oil 1,000 mg Softgel] Cholecalciferol [Vitamin D3 (25 50 mcg PO DAILY 12/27/20 12/31/20 History Mcg = 1000 Iu)] Allergies Allergy/AdvReac Type Severity Reaction Status Date / Time Penicillins Allergy Rash/Hives Verified 12/31/20 07:52 Physical Exam Vitals: Vital Signs Temp Pulse Resp BP Pulse Ox 12/01/23 13:22 98.3 F 84 16 134/81 99 Intake and Output 11/30/23 12/01/23 12/01/23 22:59 06:59 14:59 Other: Weight 96.162 kg The patient appeared well nourished and normally developed. Vital signs as documented. Head exam is unremarkable. No scleral icterus or corneal arcus noted. Neck is without jugular venous distension, thyromegaly, or carotid bruits. The patient is Mallampati class IV with significant currently reports her parents carotid upstrokes are brisk bilaterally. Lungs are clear to auscultation and percussion. Cardiac exam reveals the PMI to be normally sized and situated. Rhythm is regular. First and second heart sounds normal. No m urmurs, rubs or gallops. Abdominal exam reveals normal bowel sounds, no masses, no organomegaly and no aortic enlargement. Extremities are nonedematous and both femoral and pedal pulses are normal. Examination of the skin revealed no evidence of significant rashes, suspicious appearing nevi or other concerning lesions. Neurologically, the patient is awake and alert and the patient does not have any focal neurological deficit. Cranial nerves are essentially intact. Assessment and Plan Plan: Chronic hypersomnia, fatigue, [place] score of 9 with a possibility of underlying obstructive sleep apnea. Snoring Difficulties with sleep maintenance, rule out sleep maintenance insomnia versus sleep apnea Mallampati class IV No major comorbidities. No cardiovascular complications. Plan Will set up this patient for a screening polysomnography. With the presence of sleep apnea and decide on treatment options accordingly Optimize sleep hygiene measures Maintain regular sleep schedule Avoid doing any work-related activities in the bedroom environment and specially in bed Weight loss Will follow Sleep Note - Sleep Data ESS Total: 9 - Sleep Note Sleep Note: Temperature: 98.3 F Pulse Rate: 84 Respiratory Rate: 16 Blood Pressure: 134/81 SpO2: 99 Height: 5 ft 9.7 in Weight: 96.162 kg BMI: Neck Circumference: 15.7
== END ==
LOC: 3 N SLEEP 13:01
PROVIDERS: ATTEND Internal Medicine Critical Care Medicine
DX: G47.10 Hypersomnia, unspecified (principal); R06.83 Snoring; R53.83 Other fatigue; Z79.82 Long term (current) use of aspirin; Z87.891 Personal history of nicotine dependence; Z88.0 Allergy status to penicillin
CPT/HCPCS: 99211

== ENCOUNTER → 2024-01-15 | Day surgery (SDC) | payer BC ==
[~2024-01-15] MED LIST changes: -LACTATED RINGERS 1,000 ML IV SCH; +PROPOFOL 10 MG/ML 20 ML VIAL IV ONE
[2024-01-15] MEDS: LACTATED RINGERS 1,000 ML IV SCH (14:06)
[2024-01-15 14:15] VITALS: TEMP 97.1
--- NOTE | 2024-01-15 15:24 | P.PCN ---
Date of Procedure: 01/15/24 Procedure(s) Performed: BRIEF HISTORY: Patient is a 53-year-old pleasant white male scheduled for an elective colonoscopy as a part of evaluation for history of colon polyps. Last colonoscopy was 3 years ago. PROCEDURE PERFORMED: Colonoscopy with biopsy. PREOPERATIVE DIAGNOSIS: History of colon polyps. IV sedation per Anesthesia. PROCEDURE: After informed consent was obtained, the patient, was brought into the endoscopy unit. IV sedation was administered by Anesthesia under continuous monitoring. Digital rectal examination was normal. Initially the Olympus CF-160 flexible video colonoscope was then inserted in the rectum, gradually advanced into the cecum without any difficulty. Careful examination was performed as the scope was gradually being withdrawn. Ileocecal valve and the appendiceal orifice were visualized and appeared normal. Prep was excellent. Mucosa of the cecum, 3 to 4 mm sessile polyp was removed by cold biopsy. Ascending colon, transverse colon, descending colon, sigmoid colon, and rectum appeared normal. Retroflexion was performed in the rectum and no lesions were seen. The patient tolerated the procedure well. IMPRESSION: 3 to 4 mm cecal polyp status post removal by cold biopsy Rest of the colon appeared normal RECOMMENDATIONS: Findings of this examination were discussed with the patient as well as his family. He was advised to follow-up with the biopsy results. Recommend repeat colonoscopy in 5 years.
[2024-01-15 15:42] VITALS: BP 132/95; PULSE 76; RESP 16
== END ==
LOC: ORWHC2ENDO 12:52
PROVIDERS: ATTEND Internal Medicine Gastroenterology
DX: Z12.11 Encounter for screening for malignant neoplasm of colon (principal); K63.5 Polyp of colon; E78.5 Hyperlipidemia, unspecified; Z86.010 Personal history of colon polyps; Z79.899 Other long term (current) drug therapy; Z88.0 Allergy status to penicillin; Z87.891 Personal history of nicotine dependence
CPT/HCPCS: 88305; 45380; J2704

== ENCOUNTER 2024-06-01 19:38 | Outpatient (CLI) | payer BC ==
--- NOTE | 2024-06-09 13:48 | P.PCN ---
Date of Procedure: 06/01/24 Operative Findings: Polysomnography report Date of service is 06/01/2024 Pertinent history This is a 54-year-old male patient who was seen at the sleep center due to concerns of obstructive sleep apnea. The patient has noted some increased snoring along with fatigue. The patient's [place] score is currently at 9. He has also difficulties in sleep maintenance. For that reason, the patient was set up for a screening polysomnography Pertinent physical findings The patient has a height of 5 feet and 9 inches, weight of 96 kg and his body mass index is 31.3 Technical description The patient was studied using a standard complex polysomnography protocol that included recording of the Lead II EKG, Central, occipital and frontal EEG, right and left outer canthus EOG, submental EMG, right and left anterior tibialis EMG, respiratory airflow by thermocouple and or pressure/flow transducer, respiratory efforts by abdominal and thoracic PVDF belts, oxygen saturation by cable oximetry. Position by observation synchronized the PSG. Equipment used: [employer]. Sleep architecture The total recording duration was 413.5 minutes. The total sleep time was 374 0.5 minutes. The wake after sleep onset time was 29.5 minutes. The latency to sleep onset was 9.5 minutes. The latency to REM sleep was 198.5 minutes. The sleep architecture was characterized by a 0.3% stage I, 77.7% stage II, 2.9% stage III and a total of 11.1% REM sleep. The total arousal index was 11.7. Respiratory analysis The sleep study showed a total of 77 obstructive events of which 1 was obstructive apnea, 0 was mixed apnea and 76 were obstructive hypopneas. The resulting AHI was 11.1 and the patient had a total of 2 central events and the central apnea index was 0.3. The patient had an essentially obstructive hypopneas and there was no positional variation in the severity of his JERZY. Oxygenation analysis The baseline pulse ox while awake was 94%. Minimum pulse ox during the sleep study was 86% and the patient spent approximately 1 hours and 80 minutes of sleep time below pulse ox of 89%. The oxygen desaturations were more predominant during REM sleep. Sleep continuity summary There was a total of 73 arousals with an index of 11.7. Respiratory arousal index was 2.4 Periodic limb movement activity There was a total of 5. At the moment activity with an index of 0.8. There was another 8 periodic movement activity with arousals with an index of 1.3 Cardiac summary Average heart rate was 63 with a minimum heart rate of 60 and maximum heart rate of 67 Assessment Mild obstructive sleep apnea with an AHI of 11.1 Mild nocturnal oxygen desaturation No significant arousals and the patient's overall arousal index was 11.7. Respiratory arousal index was 2.4. Overall sleep efficiency was 90% and there is no indication for sleep onset or maintenance insomnia. Latency to sleep was around 9.5 minutes. Body mass index is 31.3 [place] score is at 9 Snoring No major comorbidities Plan I am going to discuss the findings with the patient. Obviously, this is a case of mild obstructive sleep apnea. The patient is able to initiate and maintain sleep with some minimal sleep fragmentation. The benefit from CPAP therapy will be marginal at best. I am willing to offer him the treatment as long as the patient is willing to undertake CPAP therapy. Alternatively, the patient can emphasize on conservative measures of losing weight, sleeping on his side, maintaining good sleep hygiene measures, maintaining a regular sleep schedule and even the possibility of considering a oral appliance for snoring and treatment of mild obstructive sleep apnea. The final decision will be done after having discussed the treatment options with the patient
== END 2024-06-02 05:20 | disposition home or self-care (01) ==
LOC: 3 N SLEEP 19:38
PROVIDERS: ATTEND Internal Medicine Critical Care Medicine
DX: G47.33 Obstructive sleep apnea (adult) (pediatric)
CPT/HCPCS: 95810

== ENCOUNTER → 2024-06-16 | Outpatient (CLI) | payer BC ==
--- NOTE | 2024-06-16 19:32 | CA ---
Exercise Stress Test Report Name: Matthew Vazquez Exam Date: 06/16/2024 09:17 Exam Location: [facility] Ht (in): 71 Wt (lb): 205 BSA: 2.13 Ordering Phys: Jayson Horvath MD Referring Phys: FUAD,, Technologist: Andrea Salomon Age: 54 Gender: M : 1970 Procedure CPT: Indications: I20.89 OTHER FORMS OF ANGINA PECTORIS ICD-10 Codes: Patient History: CHEST APIN, PALPITATIONS, HYPERCHOLESTEROLEMIA, PRIOR SMOKER Medications: ATORVASTATIN,,,,,, ESCITALOPRAM,,,,,, COQ10,,,,,, ETEZEMBIE,,,,, Meds past 24 hrs: Pretest Chest Pain: STRESS TEST Dmitry Protocol Exercise Duration (min:sec): 12:[address] Depressions (mm): Angina Score: Valente Score: Resting HR (bpm): 69 Peak HR (bpm): 156 Resting BP (mmHg): 119 / 88 Peak BP (mmHg): 174 / 76 MPHR: 165 Target HR: 140 % MPHR: 95 METS: 12.1 Total Dose: Peak Dose: Atropine: Double Product: 25921 BP Response: Stress Termination: MAX EXERTION/TARGET HR Stress Symptoms: NO SYMPTOMS Stress Summary: ECG ANALYSIS Resting ECG: Stress ECG: CONCLUSIONS Diagnosis angina pectoralis, dyslipidemia, history of smoking Excellent exercise capacity on a Dmitry protocol, 12 minutes, 12.1 METS achieved Normal heart rate and blood pressure response No ECG evidence for ischemia or arrhythmia Dr. Edgar Garcia MD (Electronically Signed) Final Date: 16 June 2024 19:31
--- NOTE | 2024-06-21 22:50 | NM ---
EXAMINATION TYPE: NM stress cardiolite complete DATE OF EXAM: 06/16/2024 COMPARISON: NONE HISTORY: Angina pectoralis TECHNIQUE: After the intravenous administration of 10.2 mCi Tc 99m Sestamibi - Cardiolite resting SP ECT images acquired 45 minutes post injection. At peak stress 26.1 mCi Tc 99m Sestamibi - Stress images obtained 10 minutes post injection The patient was stressed with 0.4mg Lexiscan. FINDINGS: No fixed defects are evident. No reversible stress defects on Spect images. Polar maps suggest small defects on stress which are larger on rest. Correlating findings on SPECT im aging however are not evident and this is likely artifact. Wall motion is normal Ejection fraction is calculated to be 66 %. IMPRESSION: 1. No stress-induced ischemic changes. [facility], , 06/21/2024 10:47 PM
== END | disposition home or self-care (01) ==
LOC: RADNMMAIN 07:53
PROVIDERS: ATTEND Internal Medicine
DX: I20.89 Other forms of angina pectoris
CPT/HCPCS: 78452; 93017

== ENCOUNTER → 2024-12-02 | Outpatient (CLI) | payer BC ==
[2024-12-02 10:45] LABS: Basophils # (A) 0.03 X 10*3/uL (0.00-0.10); Basophils % (A) 0.5 %; Eosinophils # (A) 0.13 X 10*3/uL (0.04-0.35); Eosinophils % (A) 2.3 %; HCT 42.6 % (39.6-50.0); HGB 14.1 g/dL (13.0-17.0); Lymphocytes % (A) 31.5 %; MCH 27.9 pg (27.0-32.0); MCHC 33.1 g/dL (32.0-37.0); MCV 84.2 FL (80.0-97.0); Mean Platelet Volume 9.3 FL (9.5-12.2); Monocytes % (A) 8.7 %; NRBC Per 100 WBC 0 X 10*3/uL (0.00-0.01); Neutrophils # (A) 3.25 X 10*3/uL (1.80-7.70); Neutrophils % (A) 56.8 %; Platelet Count 252 X 10*3/uL (140-440); RBC 5.06 X 10*6/uL (4.40-5.60); WBC 5.72 X 10*3/uL (4.50-10.00)
[2024-12-02 10:57] LABS: ALT 36 U/L (10-49); AST 29 U/L (14-35); Albumin 4.1 g/dL (3.8-4.9); Albumin/Globulin Ratio 1.37 Ratio (1.60-3.17); Alkaline Phosphatase 83 U/L (41-126); Amylase 61 U/L (23-121); Blood Urea Nitrogen 15.2 mg/dL (9.0-27.0); Calcium 9.3 mg/dL (8.7-10.3); Carbon Dioxide 28.5 mmol/L (21.6-31.8); Chloride 105 mmol/L (96-109); Chol/HDL Ratio 4.43 Ratio; Creatine Kinase 131 U/L (35-257); Glucose 93 mg/dL (70-110); LDH 167 U/L (120-246); LDL Cholesterol,Calculated 120.4 mg/dL (0.0-131.0); Lipase 51 U/L (14-60); Potassium 5.1 mmol/L (3.5-5.5); Sodium 142 mmol/L (135-145); Total Bilirubin 0.4 mg/dL (0.3-1.2); Total Protein 7.1 g/dL (6.2-8.2)
== END | disposition home or self-care (01) ==
LOC: LABWHC1 07:43
PROVIDERS: ATTEND Internal Medicine
DX: E78.2 Mixed hyperlipidemia (principal); K80.50 Calculus of bile duct without cholangitis or cholecystitis without obstruction
CPT/HCPCS: 36415; 80053; 80061; 82150; 82550; 83615; 83690; 85025

== ENCOUNTER → 2024-12-19 | Outpatient (CLI) | payer BC ==
--- NOTE | 2024-12-19 08:03 | US ---
EXAMINATION TYPE: US gallbladder DATE OF EXAM: 12/19/2024 COMPARISON: NONE CLINICAL INDICATION: Male, 54 years old with history of K80.50 Biliary colic; Pt states episode of in tense ABD pain and pressure TECHNIQUE: Grayscale and color Doppler imaging of the right upper quadrant was performed. FINDINGS: EXAM MEASUREMENTS: Liver Length: 17.0 cm Gallbladder Wall: 0.3 cm CBD: 0.3 cm Right Kidney: 11.1 x 5.1 x 4.9 cm DAIRY NUTRITIONIST NOTES: Pancreas: Difficult to visualize due to overlying bowel gas Liver: Slightly heterogeneous, possible small cystic lesion right lateral lobe= 0.8 x 0.6 cm Gallbladder: Lumen clear, slightly contracted, pt states he is NPO Evidence for sonographic Richardson's sign: No CBD: wnl Right Kidney: No evidence of hydro, lower pole gassed out IMPRESSION: 1. No evidence for acute process. 2. Subcentimeter hepatic cyst. [facility], , 12/19/2024 8:01 AM
--- NOTE | 2024-12-19 15:15 | NM ---
EXAMINATION TYPE: NM hepatobiliary w EF DATE OF EXAM: 12/19/2024 3:07 PM COMPARISON: Ultrasound most recent .12/19/2024. CLINICAL INDICATION:Male, 54 years old with history of K80.50 Biliary colic; TECHNIQUE: The patient was given 5.13 mCi of Technetium 99m-Mebrofenin as a radiotracer and multiple scintigraphic images were obtained of the abdomen. Gallbladder function was also assessed after the administration of ensure drink and additional scintigraphic images were obtained of the abdomen. A re gion of interest was drawn over the gallbladder and a timing activity curve was generated. The gallbl adder ejection fraction was calculated. FINDINGS: Normal uptake of radiotracer was identified within the liver with excretion into the hepatic and comm on biliary ducts within 2 min. There was normal progressive washout of the liver over the course of t he study. Radiotracer uptake within the gallbladder at 2 minutes as well as small bowel activity was identified at 6 minutes. Maximum calculated gallbladder ejection fraction is: 54% at 30 minutes (Normal gallbladder ejection fraction is > 35%) IMPRESSION: 1. Normal hepatobiliary scan. 2. Normal ejection fraction. [facility], , 12/19/2024 3:13 PM
== END | disposition home or self-care (01) ==
LOC: RADUSWWP 06:54
PROVIDERS: ATTEND Internal Medicine
DX: K76.89 Other specified diseases of liver (principal); K80.50 Calculus of bile duct without cholangitis or cholecystitis without obstruction
CPT/HCPCS: 76705; 78226; A9537

== ENCOUNTER 2025-03-08 17:38 | Observation (INO) | payer BC ==
--- NOTE | 2025-03-08 17:56 | ED ---
General Adult HPI - General Chief complaint: Dizziness Stated complaint: dizziness Time Seen by Provider: 03/08/25 17:46 Source: patient, EMS, RN notes reviewed, old records reviewed Mode of arrival: EMS Limitations: no limitations - History of Present Illness Initial comments: 54-year-old male presents for evaluation of dizziness. Dizziness began suddenly 30 minutes prior to arrival. Patient states that he felt like he may pass out and felt as though the room was spinning. He states he has been able to eat and drink normally today. He had a similar brief episode this morning which resolved without specific treatment. He denies chest pain. Denies thunderclap headache. Denies focal weakness. - Related Data Home Medications Medication Instructions Recorded Confirmed Atorvastatin Calcium [Lipitor] 20 mg PO DAILY 08/31/17 01/13/24 Allergies Allergy/AdvReac Type Severity Reaction Status Date / Time Penicillins Allergy Rash/Hives Verified 01/13/24 11:19 Review of Systems ROS Statement: Those systems with pertinent positive or pertinent negative responses have been documented in the HPI. ROS Other: All systems not noted in ROS Statement are negative. Past Medical History Past Medical History: No Reported History Additional Past Medical History / Comment(s): hx. colon polyps History of Any Multi-Drug Resistant Organisms: None Reported Past Surgical History: Orthopedic Surgery Additional Past Surgical History / Comment(s): Deviated Septum Past Anesthesia/Blood Transfusion Reactions: No Reported Reaction Additional Past Anesthesia/Blood Transfusion Reaction / Comment(s): no hx. of blood transfusion Past Psychological History: No Psychological Hx Reported Smoking Status: Former smoker General Exam Limitations: no limitations General appearance: alert, in no apparent distress Eye exam: Present: normal appearance, PERRL, nystagmus ENT exam: Present: normal exam Neck exam: Present: normal inspection. Absent: tenderness, meningismus Respiratory exam: Present: normal lung sounds bilaterally. Absent: respiratory distress, wheezes Cardiovascular Exam: Present: regular rate, normal rhythm GI/Abdominal exam: Present: soft. Absent: distended, tenderness Neurological exam: Present: alert, oriented X3, CN II-XII intact, other (No ataxia). Absent: motor sensory deficit Psychiatric exam: Present: normal affect, normal mood Course Vital Signs 03/08/25 03/08/25 03/08/25 17:40 19:14 20:20 Temperature 98.2 F Pulse Rate 68 67 78 Respiratory 18 16 18 Rate Blood Pressure 126/91 136/87 135/77 O2 Sat by Pulse 100 99 98 Oximetry 03/08/25 21:30 Temperature Pulse Rate 78 Respiratory 18 Rate Blood Pressure 126/78 O2 Sat by Pulse 97 Oximetry Medical Decision Making - Medical Decision Making Was pt. sent in by a medical professional or institution (, [facility], [employer], urgent care, hospital, or long-term...) When possible be specific @ -No Did you speak to anyone other than the patient for history (EMS, parent, family, police, friend...)? What history was obtained from this source @ -No Did you review nursing and triage notes (agree or disagree)? Why? @ -I reviewed and agree with nursing and triage notes Were old charts reviewed (outside hosp., previous admission, EMS record, old EKG, old radiological studies, urgent care reports/EKG's, long-term records)? Report findings @ -No old charts were reviewed Differential Dizziness: Benign paroxysmal positional Vertigo, Meniere's disease, otitis media, acoustic neuroma, vertebrobasilar insufficiency, cerebellar stroke, encephalitis, hypovolemic, arrhythmia, coronary artery syndrome, anemia, this is not meant to be an all-inclusive list EKG interpreted by me (3pts min.). @Sinus rhythm rate of 70, [place] interval 155, QRS duration 108, QTc [address] segment elevation. X-rays interpreted by me (1pt min.). @ -None done CT interpreted by me (1pt min.). @ - without contrast negative for intracranial hemorrhage or mass effect, CT angiography negative for acute occlusion or stenosis, no aneurysmal changeCT U/S interpreted by me (1pt. min.). @ -None done What testing was considered but not performed or refused? (CT, X-rays, U/S, labs)? Why? @ -None What meds were considered but not given or refused? Why? @ -None Did you discuss the management of the patient with other professionals (professionals i.e. [facility]acios, [employer], lab, RT, psych nurse, social work coordinator, contract agent, teacher, facility security officer, porter sample case)? Give summary @ Dr. Horvath Was smoking cessation discussed for >3mins.? @ -No Was critical care preformed (if so, how long)? @ -No Were there social determinants of health that impacted care today? How? (Homelessness, low income, unemployed, alcoholism, drug addiction, transportation, low edu. Level, literacy, decrease access to med. care, care home, rehab)? @ -No Was there de-escalation of care discussed even if they declined (Discuss DNR or withdrawal of care, Hospice)? DNR status @ -No What co-morbidities impacted this encounter? (DM, HTN, Smoking, COPD, CAD, Cancer, CVA, ARF, Chemo, Hep., AIDS, mental health diagnosis, sleep apnea, morbid obesity)? @ -None Was patient admitted / discharged? Hospital course, mention meds given and route, prescriptions, significant lab abnormalities, going to OR and other pertinent info. @ -[54-year-old male presenting with sudden onset dizziness, room spinning sensation and significant nausea vomiting. Any positional change induces vomiting. No recent upper respiratory infection. No trauma. Patient has a nonfocal neurologic exam. Initial evaluation does reveal some horizontal nystagmus. He has no limb ataxia. No limb weakness. Vital signs are stable. Patient is in sinus rhythm. He has a normal CBC, normal CMP, negative troponin, negative urinalysis. I did perform bolus CT without contrast which was negative for intracranial hemorrhage or mass effect and later while the patient remained significantly symptomatic CT angiography which was negative for acute occlusion or stenosis. Patient remains significantly symptomatic with any movement unable to stand or walk. I discussed case with Dr. Horvath, recommends Solu-Medrol. Patient given this medication continues to have symptoms will require observation for symptomatic treatment. Undiagnosed new problem with uncertain prognosis? @ -No Drug Therapy requiring intensive monitoring for toxicity (Heparin, Nitro, Insulin, Cardizem)? @ -No Were any procedures done? @ -No Diagnosis/symptom? @ -Vertigo, nausea vomiting Acute, or Chronic, or Acute on Chronic? @ -Acute Uncomplicated (without systemic symptoms) or Complicated (systemic symptoms)? @ -Default Side effects of treatment? @ -No Exacerbation, Progression, or Severe Exacerbation? @ -No Poses a threat to life or bodily function? How? (Chest pain, [place], [place], pneumonia, PE, COPD, DKA, ARF, appy, cholecystitis, CVA, Diverticulitis, Homicidal, Suicidal, threat to staff... and all critical care pts) @ -Yes, risk of fall, risk of CVA - Lab Data Result diagrams: 06/18/25 18:07 03/08/25 18:07 Lab Results 03/08/25 03/08/25 03/08/25 Range/Units 18:07 18:07 18:07 WBC 10.87 H (4.50-10.00) 10*3/uL RBC 4.86 (4.40-5.60) 10*6/uL Hgb 14.0 (13.0-17.0) g/dL Hct 40.1 (39.6-50.0) % MCV 82.5 (80.0-97.0) fL MCH 28.8 (27.0-32.0) pg MCHC 34.9 (32.0-37.0) g/dL Plt Count 223 (140-440) 10*3/uL MPV 9.2 L (9.5-12.2) fL Immature Gran % (Auto) 0.3 % Neutrophils % 77.1 % Lymphocytes % 15.5 % Monocytes % 5.9 % Eosinophils % 1.0 % Basophils % 0.2 % Immature Gran # 0.03 (0.00-0.04) 10*3/uL Neutrophils # 8.38 H (1.80-7.70) 10*3/uL Lymphocytes # 1.69 (0.90-5.00) 10*3/uL Monocytes # 0.64 (0.20-1.00) 10*3/uL Eosinophils # 0.11 (0.04-0.35) 10*3/uL Basophils # 0.02 (0.00-0.10) 10*3/uL Sodium 137 (137-145) mmol/L Potassium 4.2 (3.5-5.1) mmol/L Chloride 104 (98-107) mmol/L Carbon Dioxide 24 (22-30) mmol/L Anion Gap 9 mmol/L BUN 16 (9-20) mg/dL Creatinine 0.92 (0.66-1.25) mg/dL Est GFR (CKD-EPI)AfAm >90 (>60 ml/min/1.73 sqM) Est GFR (CKD-EPI)NonAf >90 (>60 ml/min/1.73 sqM) Glucose 94 (74-99) mg/dL Plasma Lactic Acid Te 1.6 (0.7-2.0) mmol/L Calcium 9.0 (8.4-10.2) mg/dL Total Bilirubin 0.3 (0.2-1.3) mg/dL AST 33 (17-59) U/L ALT 34 (4-49) U/L Alkaline Phosphatase 82 (38-126) U/L Troponin I (0.000-0.034) ng/mL Total Protein 7.1 (6.3-8.2) g/dL Albumin 4.0 (3.5-5.0) g/dL Urine Color Urine Appearance (Clear) Urine pH (5.0-8.0) Ur Specific [place] (1.001-1.035) Urine Protein (Negative) Urine Glucose (UA) (Negative) Urine Ketones (Negative) Urine Blood (Negative) Urine Nitrite (Negative) Urine Bilirubin (Negative) Urine Urobilinogen (<2.0) mg/dL Ur Leukocyte Esterase (Negative) 03/08/25 03/08/25 Range/Units 18:07 18:40 WBC (4.50-10.00) 10*3/uL RBC (4.40-5.60) 10*6/uL Hgb (13.0-17.0) g/dL Hct (39.6-50.0) % MCV (80.0-97.0) fL MCH (27.0-32.0) pg MCHC (32.0-37.0) g/dL Plt Count (140-440) 10*3/uL MPV (9.5-12.2) fL Immature Gran % (Auto) % Neutrophils % % Lymphocytes % % Monocytes % % Eosinophils % % Basophils % % Immature Gran # (0.00-0.04) 10*3/uL Neutrophils # (1.80-7.70) 10*3/uL Lymphocytes # (0.90-5.00) 10*3/uL Monocytes # (0.20-1.00) 10*3/uL Eosinophils # (0.04-0.35) 10*3/uL Basophils # (0.00-0.10) 10*3/uL Sodium (137-145) mmol/L Potassium (3.5-5.1) mmol/L Chloride (98-107) mmol/L Carbon Dioxide (22-30) mmol/L Anion Gap mmol/L BUN (9-20) mg/dL Creatinine (0.66-1.25) mg/dL Est GFR (CKD-EPI)AfAm (>60 ml/min/1.73 sqM) Est GFR (CKD-EPI)NonAf (>60 ml/min/1.73 sqM) Glucose (74-99) mg/dL Plasma Lactic Acid Te (0.7-2.0) mmol/L Calcium (8.4-10.2) mg/dL Total Bilirubin (0.2-1.3) mg/dL AST (17-59) U/L ALT (4-49) U/L Alkaline Phosphatase (38-126) U/L Troponin I <0.012 (0.000-0.034) ng/mL Total Protein (6.3-8.2) g/dL Albumin (3.5-5.0) g/dL Urine Color Colorless Urine Appearance Clear (Clear) Urine pH 7.5 (5.0-8.0) Ur Specific [place] 1.016 (1.001-1.035) Urine Protein Negative (Negative) Urine Glucose (UA) Negative (Negative) Urine Ketones Negative (Negative) Urine Blood Negative (Negative) Urine Nitrite Negative (Negative) Urine Bilirubin Negative (Negative) Urine Urobilinogen <2.0 (<2.0) mg/dL Ur Leukocyte Esterase Negative (Negative) Disposition Clinical Impression: Vertigo Disposition: ADMITTED IP TO THIS [facility] Condition: Stable Is patient prescribed a controlled substance at d/c from ED?: No Referrals: Jayson Horvath MD [Primary Care Provider] - 1-2 days Time of Disposition: 22:55
[2025-03-08] MEDS: SODIUM CHLORIDE 0.9% 1,000 ML IV STA (18:12)
[2025-03-08] MEDS: MECLIZINE 12.5 MG TAB PO STA ×2 (18:13→19:13)
[2025-03-08] MEDS: ONDANSETRON 4 MG/2 ML VIAL IVP STA (18:13)
[2025-03-08 18:25] LABS: Basophils # (A) 0.02 10*3/uL (0.00-0.10); Basophils % (A) 0.2 %; Eosinophils # (A) 0.11 10*3/uL (0.04-0.35); HCT 40.1 % (39.6-50.0); Lymphocytes # (A) 1.69 10*3/uL (0.90-5.00); Lymphocytes % (A) 15.5 %; MCH 28.8 pg (27.0-32.0); MCHC 34.9 g/dL (32.0-37.0); MCV 82.5 fL (80.0-97.0); Mean Platelet Volume 9.2 fL (9.5-12.2); Monocytes # (A) 0.64 10*3/uL (0.20-1.00); Monocytes % (A) 5.9 %; Neutrophils # (A) 8.38 10*3/uL (1.80-7.70); Neutrophils % (A) 77.1 %; Platelet Count 223 10*3/uL (140-440); RBC 4.86 10*6/uL (4.40-5.60); RDW 12.3 % (11.5-14.5); WBC 10.87 10*3/uL (4.50-10.00)
[2025-03-08 18:49] LABS: Appearance,Urine Clear (Clear); Bilirubin,Urine Negative (Negative); Blood,Urine Negative (Negative); Color,Urine Colorless; Glucose,Urine (UA) Negative (Negative); Ketones,Urine Negative (Negative); Leukocyte Esterase,Urine Negative (Negative); Nitrite,Urine Negative (Negative); PH, Urine 7.5 (5.0-8.0); Protein,Urine Negative (Negative); Specific Gravity,Urine 1.016 (1.001-1.035); Urobilinogen,Urine <2.0 mg/dL (<2.0)
[2025-03-08 18:57] LABS: ALT 34 U/L (4-49); AST 33 U/L (17-59); African American GFR (CKD) >90 (>60 ml/min/1.73 sqM); Alkaline Phosphatase 82 U/L (38-126); Anion Gap 9 mmol/L; Blood Urea Nitrogen 16 mg/dL (9-20); Carbon Dioxide 24 mmol/L (22-30); Chloride 104 mmol/L (98-107); Glucose 94 mg/dL (74-99); Non-African American GFR(CKD) >90 (>60 ml/min/1.73 sqM); Potassium 4.2 mmol/L (3.5-5.1); Sodium 137 mmol/L (137-145); Total Bilirubin 0.3 mg/dL (0.2-1.3); Total Protein 7.1 g/dL (6.3-8.2)
[2025-03-08] MEDS: SODIUM CHLORIDE 0.9% 500 ML 500 ML IV ONE (19:14)
--- NOTE | 2025-03-08 19:43 | CT ---
EXAMINATION TYPE: CT brain wo con DATE OF EXAM: 03/08/2025 7:34 PM COMPARISON: None. CLINICAL INDICATION: Male, 54 years old with history of dizzy, dizziness and N,V TECHNIQUE: Brain: Axial CT images of the brain were obtained with coronal and sagittal reformats created and rev iewed. Contrast used: None. Oral contrast used: None. CT DLP: 1141.4 mGycm, Automated exposure control for dose reduction was used. FINDINGS: Brain: Extra-axial spaces: No abnormal extra-axial fluid collections. Ventricular system: Within normal limits Cerebral parenchyma: No acute intraparenchymal hemorrhage or mass effect. The llanos-white junction is well differentiated. Scattered hypoattenuating areas are seen within the white matter. Cerebellum: Unremarkable. Mass effect: No evidence of midline shift. Intracranial vasculature: unremarkable Soft tissues: Normal. Calvarium/osseous structures: No depressed skull fracture. Paranasal sinuses and mastoid air cells: Mild scattered paranasal sinus disease. Visualized orbits: Orbital contents are intact. IMPRESSION: No acute intracranial process. [facility], , 03/08/2025 7:41 PM
[2025-03-08] MEDS: HYDROmorphone 0.5 MG/0.5 ML SYRINGE IVP STA (20:10)
[2025-03-08] MEDS: ACETAMINOPHEN TAB 500 MG TAB PO STA (20:11)
[2025-03-08] MEDS: SODIUM CHLORIDE 0.9% 1,000 ML IV SCH (21:40)
[2025-03-08] MEDS: methylPREDNISolone SOD SUCCI 125 MG/2 ML VIAL IV STA (21:40)
--- NOTE | 2025-03-08 21:51 | CT ---
EXAMINATION TYPE: CT angio head neck DATE OF EXAM: 03/08/2025 9:37 PM COMPARISON: None. CLINICAL INDICATION: Male, 54 years old with history of dizzy, CISNEROS; PHH, dizziness, vertigo, nausea, v omiting. TECHNIQUE: Axially acquired helical CT angiogram of the head and neck was obtained with contrast. Axi al images are supplemented with 3D reconstructions and MIP images which were post-processed at an in dependent workstation. NASCET criteria used. Contrast used:65 mL of Isovue 370 with IV Contrast, Oral contrast used: None. CT DLP: 784.5 mGycm, Automated exposure control for dose reduction was used. FINDINGS: CTA HEAD: No evidence of acute intracranial hemorrhage, mass effect, or midline shift. The ventricles, sulci, a nd cisterns are unremarkable. Vertebral arteries: The vertebral arteries are patent. Vertebral artery dominance: Codominant Basilar artery: The basilar artery is intact. The basilar artery bifurcation is normal. Internal Carotid arteries: The cervical, petrous, cavernous and supraclinoid segments are normal. SAVANAH: Patent with no evidence of aneurysm. ACOM: Present without evidence of aneurysm. MCA: Patent with no evidence of aneurysm. DOWEL SANDER OPERATOR: Patent with no evidence of aneurysm. PCOM: Hypoplastic bilaterally. Dural sinuses: Patent. CTA NECK: Right Carotid System: The common carotid artery and external carotid artery are patent. The carotid bifurcation demonstrate s no evidence of hemodynamically significant stenosis. The remaining portions of the internal carotid artery demonstrate normal size without significant narrowing. Left Carotid System: The common carotid artery and external carotid artery are patent. The carotid bifurcation demonstrate s no evidence of hemodynamically significant stenosis. The remaining portions of the internal carotid artery demonstrate normal size without significant narrowing. Vertebral arteries are patent without evidence hemodynamically significant stenosis. There is common origin of the right brachiocephalic and left common carotid arteries The origins of t he great vessels are patent. No evidence of hemodynamically significant stenosis. Upper thorax: IMPRESSION: 1. No evidence of dissection of the cervical internal carotid arteries or vertebral arteries. 2. No any evidence of significant stenosis at the carotid bifurcations. 3. No evidence of intracranial high-grade stenosis or intracranial aneurysm. [facility], , 03/08/2025 9:49 PM
[2025-03-08] MEDS ORDERED: NALOXONE 0.4 MG/ML 1 ML VIAL IV PRN (21:56)
[2025-03-08] MEDS ORDERED: ONDANSETRON 4 MG/2 ML VIAL IVP PRN (21:56)
[2025-03-08] MEDS ORDERED: LORazepam 1 MG/0.5 ML VIAL IV PRN (22:01)
[2025-03-09] MEDS: MECLIZINE 25 MG TAB PO PRN (03:05)
[2025-03-09] MEDS: ACETAMINOPHEN TAB 325 MG TAB PO PRN (03:05)
[2025-03-09] MEDS: ATORVASTATIN 20 MG TAB PO SCH (09:28)
[2025-03-09] MEDS: MECLIZINE 25 MG TAB PO SCH (09:58)
[2025-03-09] MEDS: methylPREDNISolone SOD SUCCI 40 MG/ML 1 ML VIAL IV SCH (09:59)
[2025-03-09] MEDS: SCOPOLAMINE 1 MG/72 HR PATCH TRANSDERM SCH (10:00)
--- NOTE | 2025-03-09 15:01 | P.CNNES ---
History of Present Illness Consult date: 03/09/25 Requesting physician: Jayson Horvath Reason for Consult: vertigo History of Present Illness: This is a 54-year-old gentleman who presents emergency department because of dizziness. Patient is accompanied with his family members. He stated that his dizziness began yesterday around 4 PM in the afternoon all of a sudden. He feels that the room is spinning and its mostly dizziness is exacerbated with movement. He had nausea vomiting. Denies any ringing of the ears or any hearing loss. He had diplopia as well. Denies any focal weakness but just felt lethargic throughout yesterday. Today he feels his dizziness is better compared to yesterday and his nausea is much better. He has a scopolamine patch that was started by the primary physician as well as was given Zofran Solu-Medrol and is on IV fluids. He is also on meclizine and had a total of 4 doses of 25 mg. Patient denies any history of stroke. Patient denies any tobacco use. Denies any head trauma. Denies any focal weakness. Denies any difficulty swallowing. Some of the workup during this hospital visit consisted of: I personally reviewed labs CT of the head is negative for any acute process. I personally reviewed the CT and agree with the report. CT angiography of the head and neck is reported as no evidence of dissection of cervical internal carotid artery or vertebral artery. No any evidence of significant stenosis at the carotid bifurcation. No evidence of intracranial high-grade stenosis or intracranial aneurysm. Review of Systems As per HPI. Past Medical History Past Medical History: No Reported History Additional Past Medical History / Comment(s): hx. colon polyps History of Any Multi-Drug Resistant Organisms: None Reported Past Surgical History: Orthopedic Surgery Additional Past Surgical History / Comment(s): Deviated Septum, colonscopy. Past Anesthesia/Blood Transfusion Reactions: No Reported Reaction Additional Past Anesthesia/Blood Transfusion Reaction / Comment(s): no hx. of blood transfusion Past Psychological History: No Psychological Hx Reported Smoking Status: Former smoker Past Alcohol Use History: Occasional Past Drug Use History: None Reported Additional Drug Use History / Comment(s): patient smoked for 6 years quit smoking 1990. - Past Family History Sister(s) Additional Family Medical History / Comment(s): lupus Medications and Allergies Home Medications Medication Instructions Recorded Confirmed Type ALPRAZolam [Xanax] 0.25 mg PO DAILY PRN 03/09/25 03/09/25 History Allergies Allergy/AdvReac Type Severity Reaction Status Date / Time Penicillins Allergy Rash/Hives Verified 03/09/25 09:00 Physical Examination - Vital Signs Vital Signs: Vital Signs Temp Pulse Pulse Resp BP BP Pulse Ox 03/09/25 13:40 98.1 F 96 23 110/70 93 L 03/09/25 06:53 97.8 F 89 14 108/65 98 03/09/25 02:15 97.5 F L 90 19 119/75 95 03/09/25 02:00 97.7 F 80 14 103/62 92 L 03/09/25 01:53 97.5 F L 90 19 119/75 95 03/08/25 21:30 78 18 126/78 97 03/08/25 20:20 78 18 135/77 98 03/08/25 19:14 67 16 136/87 99 03/08/25 17:40 98.2 F 68 18 126/91 100 Intake and Output 03/08/25 03/09/25 03/09/25 22:59 06:59 14:59 Intake Total 540 Output Total 570 500 Balance -30 -500 Intake: Oral 540 Output: Urine 570 500 Other: Weight 92.986 kg 92.986 kg GENERAL: The patient is lying in bed and is not in acute distress. NEUROLOGICAL: Higher mental function: The patient is awake, alert, oriented to self, place and time. Patient is following commands. No aphasia and no neglect. Cranial nerves: The pupils are round, equal and reactive to light and accommodation. Visual armas are full to confrontation throughout. Extraocular movement is intact no nystagmus is noted. Facial sensation is normal to touch throughout. The facial strength is normal throughout. Hearing is normal bilaterally to hand rub. Tongue is midline and moved [id number] without any difficulty. No dysarthria is noted. Shoulder shrug is normal bilaterally. Motor: Gait is not assessed since feeling dizzy. The strength is 5 over 5 throughout. Normal tone and bulk. Cerebellum: Normal finger to nose heel to dwyer bilaterally. Sensation: Sensation is normal to touch throughout. Reflexes (right/left): 2+ throughout. Plantars are mute bilaterally. Results - Laboratory Findings CBC and BMP: 03/08/25 18:03/08/25 18:07 Abnormal Lab Findings: Abnormal Labs 03/08/25 18:07 WBC 10.87 H MPV 9.2 L Neutrophils # 8.38 H Assessment and Plan Assessment: This is a 54-year-old gentleman who presents emergency department because of dizziness that started yesterday in the late afternoon with nausea vomiting and he feels dizziness as if the room is spinning and worse with position. He received IV fluids, steroids, scopolamine patch and meclizine and today he feels better. Acute vertigo seems likely peripheral. Patient does not have any focal deficit. CT head and CTA are unremarkable. Plan: I agree with the scopolamine patch, the meclizine 25 mg 1 tablet 3 times daily for a total of 7 days and Zofran as needed. If patient continues to have symptoms after that then recommend the patient to be evaluated by ENT as an outpatient as vestibular rehab therapy. Cannot obtain MRI of the brain since the MRI machine is down but unlikely this is a stroke. Defer the rest of the medical management department other specialist. Thank you for the consultation Time with Patient: Greater than 30
--- NOTE | 2025-03-09 18:17 | P.HPIM ---
History of Present Illness H&P Date: 03/09/25 Chief Complaint: Severe vertigo with intractable nausea and vomiting HISTORY OF PRESENT ILLNESS: This is a 54-year-old male with a previous medical history significant for mixed hyperlipidemia, history of acne, history of eczema, patient presented to the emergency department at [facility] yesterday because of sudden onset of intractable vertigo associated with intractable nausea and vomiting with significant nystagmus in his eye, without any significant lateralization no weakness in the upper or lower extremities, he was complain of significant heada britney along with that, patient was doing work outside and he was drink enough water, but this is happen after he had a severe sneeze and started having some issues with vertigo patient was seen in the emergency department, had a CT scan of the brain that was negative, had a CT angiography of the brain that was negative as well, but because of the symptoms patient could not keep his head up, he was given multiple doses of lorazepam as well as meclizine and he was given Solu-Medrol 40 mg IV push every 12 hours, he was started on IV fluid resuscitation in the form of normal saline at 100 cc an hour, but because of the symptoms are not better and because of the staggering movement, patient was adm itted to hospital for evaluation he was seen in consultation by neurology who recommended the same I started the patient on scopolamine patch 1 mg every 72 hours along with the meclizine along with the Solu-Medrol continue IV fluid for now, he was started on Fioricet 1 capsule every 4 hours as needed for headache as well. Patient is not able to go for MRI at this point in time because the MRI machine is down, in any regards the patient does not appear to have any signs or symptoms of stroke at this point in time. REVIEW OF SYSTEMS: Constitutional: No documented fever, no chills, no night sweats. No weight change. No weakness, fatigue or lethargy. No daytime sleepiness. EENT: No headache. No blurred vision or double vision, no loss of vision. No loss of Hearing, no ringing in the ears, no dizziness. No nasal drainage or congestion. No epistaxis. No sore throat. Lungs: No shortness of breath, no cough, no sputum production. No wheezing. Reports dyspnea with activity. Cardiovascular: No chest pain, no lower extremity edema. No palpitations. No paroxysmal nocturnal dyspnea. No orthopnea. positive for lightheadedness positive for dizziness. No syncopal episodes. Abdominal: Reports no abdominal pain. positive for nausea, vomiting. No diarrhea. No constipation. No bloody or tarry stools reports loss of appetite. Genitourinary: No dysuria, increased frequency, urgency. No urinary retention. Musculoskeletal: No myalgias. No muscle weakness, no gait dysfunction, no frequent falls. No back pain. positive for neck pain. Integumentary: No wounds, no lesions. No rash or pruritus. No unusual bruising. No change in hair or nails. Neurologic: No aphasia. No facial droop. No change in mentation. No head injury. No headache. No paralysis. No paresthesia. Psychiatric: No depression. No anxiety. No mood swings. Endocrine: No abnormal blood sugars. No weight change. PAST MEDICAL HISTORY: Mixed hyperlipidemia. Acne vulgaris. Eczema. Spondylosis of the cervical spine. Obstructive sleep apnea. Anxiety. Colon polyps. Enlarged prostate. PAST SURGICAL HISTORY: Right tibia ORIF 2010. Septum repair 2016. Anterior cervical discectomy in 2017. Colonoscopy 2023. SOCIAL HISTORY: Patient used to smoke about a pack every day since the age of 12 and quit at the age of 20, he drinks daily, he denies any drug use or abuse. He lives with his . 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 FAMILY HISTORY: Father at the age of 21 from [place] mother is alive 78-year-old with history of hypertension hyperlipidemia and atrial fibrillation, patient has half sister alive with lupus, patient has 2 sons alive and well, patient has 1 daughter alive and well. PHYSICAL EXAMINATION: General: 54-year-old male sitting up in bed in no distress. HEENT: Head is atraumatic, normocephalic, pupils were equal round reactive to light and recommendation, extraocular muscle movement were intact, sclera nonicteric, conjunctivae were pale, mucous membranes of the mouth are somewhat dry. Neck: Supple, no JVP, normal carotid upstroke bilaterally, no lymphadenopathy. Chest: Decreased breath sounds at the bases, few rhonchi, no expiratory wheezes, no chest wall tenderness, no intercostal retractions. Heart: First heart sound is normal, second heart sounds normal there is no gallop or murmur no rubs or heaves. Abdomen: Soft, nontender, nondistended, positive bowel sounds. Extremities: There is no edema no calf tenderness DP +2 bilaterally. Neurologic examination: Patient is awake alert and oriented x3, cranial nerves II-12 appear grossly intact, muscle power were 5 out of 5 in upper extremities and 5 out of 5 in bilateral lower extremities, deep tendon reflexes normal bilaterally. ASSESSMENT AND PLAN: 1. 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 His neurological examination continues to be nonfocal, continue patient on IV fluid resuscitation in the form of normal saline at 100 cc an hour, continue scopolamine patch 1 mg every 72 hours, co ntinue meclizine 25 mg orally 3 times every day, continue Solu-Medrol 40 mg IV push every 12 hours, continue Zofran 4 mg IV push every 8 hours as needed, follow-up with the patient very closely, avoid abrupt movement, keep the patient in bed for another 24 hours, try to ambulate in the next 24 hours. Patient will need to follow-up with an ENT as an outpatient for possible vestibular treatment. 2. Mixed hyperlipidemia. Continue patient on atorvastatin 20 mg orally once every day, monitor lipid panel, keep LDL 55-70. 3. History of eczema. Stable at this time. 4. History of acne vulgaris. Stable at this time. 5. Spondylosis of the cervical spine status post anterior cervical discectomy with fusion. Stable at this time. 6. History of anxiety. Stable at this time, continue Ativan as needed. 7. History of colon polyps. Surveillance colonoscopy is up-to-date 2023. 8. DVT prophylaxis. Lovenox 40 mg subcutaneous every 24 hours, bilateral knee- high ARCHIE hose. 9. GI prophylaxis. Protonix 40 mg once every day. 10. Admit to inpatient. Estimated length of stay 2 midnights. 11. Patient is full code. Past Medical History Past Medical History: No Reported History Additional Past Medical History / Comment(s): hx. colon polyps History of Any Multi-Drug Resistant Organisms: None Reported Past Surgical History: Orthopedic Surgery Additional Past Surgical History / Comment(s): Deviated Septum, colonscopy. Past Anesthesia/Blood Transfusion Reactions: No Reported Reaction Additional Past Anesthesia/Blood Transfusion Reaction / Comment(s): no hx. of blood transfusion Past Psychological History: No Psychological Hx Reported Smoking Status: Former smoker Past Alcohol Use History: Occasional Past Drug Use History: None Reported Additional Drug Use History / Comment(s): patient smoked for 6 years quit smoking 1990. - Past Family History Sister(s) Additional Family Medical History / Comment(s): lupus Medications and Allergies Home Medications Medication Instructions Recorded Confirmed Type ALPRAZolam [Xanax] 0.25 mg PO DAILY PRN 03/09/25 03/09/25 History Allergies Allergy/AdvReac Type Severity Reaction Status Date / Time Penicillins Allergy Rash/Hives Verified 03/09/25 09:00 Physical Exam Vitals: Vital Signs Temp Pulse Pulse Resp BP BP Pulse Ox 03/09/25 13:40 98.1 F 96 23 110/70 93 L 03/09/25 06:53 97.8 F 89 14 108/65 98 03/09/25 02:15 97.5 F L 90 19 119/75 95 03/09/25 02:00 97.7 F 80 14 103/62 92 L 03/09/25 01:53 97.5 F L 90 19 119/75 95 03/08/25 21:30 78 18 126/78 97 03/08/25 20:20 78 18 135/77 98 03/08/25 19:14 67 16 136/87 99 03/08/25 17:40 98.2 F 68 18 126/91 100 Intake and Output 03/08/25 03/09/25 03/09/25 22:59 06:59 14:59 Intake Total 540 Output Total 570 500 Balance -30 -500 Intake: Oral 540 Output: Urine 570 500 Other: Weight 92.986 kg 92.986 kg Results CBC & Chem 7: 03/08/25 18:07 03/08/25 18:07 Labs: Abnormal Lab Results - Last 24 Hours (Table) 03/08/25 Range/Units 18:07 WBC 10.87 H (4.50-10.00) 10*3/uL MPV 9.2 L (9.5-12.2) fL Neutrophils # 8.38 H (1.80-7.70) 10*3/uL Thrombosis Risk Factor Assmnt - Choose All That Apply Each Factor Represents 1 point: Age 41-60 years Other Risk Factors: No Thrombosis Risk Factor Assessment Total Risk Factor Score: 1 Thrombosis Risk Factor Assessment Level: Low Risk
[2025-03-09] MEDS: BUTALB/APAP/CAFF 50-325-40MG TAB PO PRN (20:04)
[2025-03-10 08:14] VITALS: RESP 16
[2025-03-10] MEDS: ENOXAPARIN 40 MG/0.4 ML SYRINGE SQ SCH (09:06)
[2025-03-10] MEDS: PANTOPRAZOLE 40 MG TABLET PO SCH (09:06)
[2025-03-10 10:11] LABS: Basophils # (A) 0.01 X 10*3/uL (0.00-0.10); Basophils % (A) 0.1 %; Eosinophils # (A) 0.01 X 10*3/uL (0.04-0.35); Eosinophils % (A) 0.1 %; HCT 40.7 % (39.6-50.0); HGB 13.2 g/dL (13.0-17.0); Lymphocytes # (A) 1.16 X 10*3/uL (0.90-5.00); Lymphocytes % (A) 10.9 %; MCH 28.5 pg (27.0-32.0); MCHC 32.4 g/dL (32.0-37.0); MCV 87.9 FL (80.0-97.0); Mean Platelet Volume 9.6 FL (9.5-12.2); Monocytes # (A) 0.38 X 10*3/uL (0.20-1.00); Monocytes % (A) 3.6 %; NRBC Per 100 WBC 0 X 10*3/uL (0.00-0.01); Neutrophils # (A) 9.02 X 10*3/uL (1.80-7.70); Platelet Count 226 X 10*3/uL (140-440); RBC 4.63 X 10*6/uL (4.40-5.60); RDW 13.3 % (11.5-14.5); WBC 10.61 X 10*3/uL (4.50-10.00)
[2025-03-10 11:12] LABS: ALT 26 U/L (10-49); AST 20 U/L (14-35); Albumin 3.6 g/dL (3.8-4.9); Albumin/Globulin Ratio 1.44 Ratio (1.60-3.17); Alkaline Phosphatase 62 U/L (41-126); BUN/Creat Ratio 15.67 Ratio (12.00-20.00); Blood Urea Nitrogen 14.1 mg/dL (9.0-27.0); Calcium 8.4 mg/dL (8.7-10.3); Carbon Dioxide 24.8 mmol/L (21.6-31.8); Chloride 107 mmol/L (96-109); Globulin 2.5 g/dL (1.6-3.3); Glucose 119 mg/dL (70-110); Potassium 5.2 mmol/L (3.5-5.5); Sodium 142 mmol/L (135-145); Total Bilirubin 0.2 mg/dL (0.3-1.2); Total Protein 6.1 g/dL (6.2-8.2)
[2025-03-10 13:40] VITALS: BP 131/82; PULSE 60; TEMP 98.1
--- NOTE | 2025-03-10 14:25 | P.PN ---
Subjective Progress Note Date: 03/10/25 I am following up with the patient and he states he is doing much better compared to initial presentation. Per the nursing staff he is able to walk. Patient still feels he is dizzy but much better compared to initial presentation. No further nausea or vomiting. He still has some dizziness with movement but stated earlier much better compared to initial presentation. Objective - Vital Signs Vital signs: Vital Signs Temp 98.1 F 03/10/25 13:39 Pulse 60 03/10/25 13:39 Resp 16 03/10/25 13:39 BP 131/82 03/10/25 13:39 Pulse Ox 97 03/10/25 13:39 FiO2 Intake & Output 03/09/25 03/10/25 03/10/25 18:59 06:59 18:59 Intake Total 950 Output Total 500 1100 400 Balance 450 -1100 -400 Intake: Oral 950 Output: Urine 500 1100 400 Other: Voiding Method Urinal - Exam GENERAL: The patient is lying in bed and is not in acute distress. NEUROLOGICAL: Higher mental function: The patient is awake, alert, oriented to self, place and time. Patient is following commands. No aphasia and no neglect. Cranial nerves: The pupils are round, equal and reactive to light and accommodation. Visual armas are full to confrontation throughout. Extraocular movement is intact no nystagmus is noted. Facial sensation is normal to touch throughout. The facial strength is normal throughout. Hearing is normal bilaterally to hand rub. Tongue is midline and moved [id number] without any difficulty. No dysarthria is noted. Shoulder shrug is normal bilaterally. Motor: Gait is initially dizzy sitting up but then was able to get up on his own and walk without any assistance and did well. The strength is 5 over 5 throughout. Normal tone and bulk. Cerebellum: Normal finger to nose heel to dwyer bilaterally. Sensation: Sensation is normal to touch throughout. Some of the workup during this hospital visit consisted of: I personally reviewed labs CT of the head is negative for any acute process. I personally reviewed the CT and agree with the report. CT angiography of the head and neck is reported as no evidence of dissection of cervical internal carotid artery or vertebral artery. No any evidence of significant stenosis at the carotid bifurcation. No evidence of intracranial high-grade stenosis or intracranial aneurysm. - Labs CBC & Chem 7: 03/10/25 06:37 03/10/25 06:37 Labs: Abnormal Lab Results - Last 24 Hours (Table) 03/10/25 03/10/25 Range/Units 06:37 06:37 WBC 10.61 H (4.50-10.00) X 10*3/uL Neutrophils # 9.02 H (1.80-7.70) X 10*3/uL Eosinophils # 0.01 L (0.04-0.35) X 10*3/uL Glucose 119 H (70-110) mg/dL Calcium 8.4 L (8.7-10.3) mg/dL Total Bilirubin 0.2 L (0.3-1.2) mg/dL Total Protein 6.1 L (6.2-8.2) g/dL Albumin 3.6 L (3.8-4.9) g/dL Albumin/Globulin Ratio 1.44 L (1.60-3.17) Ratio Assessment and Plan Assessment: This is a 54-year-old gentleman who presents emergency department because of dizziness that started yesterday in the late afternoon with nausea vomiting and he feels dizziness as if the room is spinning and worse with position. He received IV fluids, steroids, scopolamine patch and meclizine and today he feels better. Acute vertigo seems likely peripheral. Patient does not have any focal deficit. CT head and CTA are unremarkable--today drastically better but not completely resolved and walking without assistance. Plan: I agree with the scopolamine patch, the meclizine 25 mg 1 tablet 3 times daily for a total of 7 days and Zofran as needed. If patient continues to have symptoms after that then recommend the patient to be evaluated by ENT as an outpatient as vestibular rehab therapy. Recommend Concepcion maneuver. Cannot obtain MRI of the brain since the MRI machine is down but unlikely this is a stroke. Defer the rest of the medical management department other specialist. Otherwise, no additional neurological work-up. Will sign off. Please reconsult if needed. Time with Patient: Less than 30
--- NOTE | 2025-03-10 16:09 | P.DS ---
Providers Date of admission: 03/08/25 21:56 Expected date of discharge: 03/10/25 Attending physician: Jayson Horvath Consults: 03/09/25 13:04 Consult Physician Routine Consulting Provider: Martinez Terrell Consult Reason/Comments: vertigo Do you want consulting provider notified?: Yes Primary care physician: Jayson Horvath Hospital Course: HISTORY OF PRESENT ILLNESS: This is a 54-year-old male with a previous medical history significant for mixed hyperlipidemia, history of acne, history of eczema, patient presented to the emergency department at [facility] yesterday because of sudden onset of intractable vertigo associated with intractable nausea and vomiting with significant nystagmus in his eye, without any significant lateralization no weakness in the upper or lower extremities, he was complain of significant headache along with that, patient was doing work outside and he was drink enough water, but this is happen after he had a severe sneeze and started having some issues with vertigo patient was seen in the emergency department, had a CT scan of the brain that was negative, had a CT angiography of the brain that was negative as well, but because of the symptoms patient could not keep his head up, he was given multiple doses of lorazepam as well as meclizine and he was given Solu-Medrol 40 mg IV push every 12 hours, he was started on IV fluid res uscitation in the form of normal saline at 100 cc an hour, but because of the symptoms are not better and because of the staggering movement, patient was admitted to hospital for evaluation he was seen in consultation by neurology who recommended the same I started the patient on scopolamine patch 1 mg every 72 hours along with the meclizine along with the Solu-Medrol continue IV fluid for now, he was started on Fioricet 1 capsule every 4 hours as needed for headache as well. Patient is not able to go for MRI at this point in time because the MRI machine is down, in any regards the patient does not appear to have any signs or symptoms of stroke at this point in time. 03/10: Patient is sitting up in bed he was able to ambulate today, but he continues to have a significant vertigo minimal nausea no vomiting, he is moving all upper and lower extremities, no signs of lateralization of this point in time, no headache, I will discharge the patient home today, he will be kept on meclizine 25 mg orally 3 times every day, scopolamine patch for another 2 more patches, continue Zofran ODT 40 mg orally 3 times every day as needed, I will follow-up with the patient next week, patient was instructed not to drive any card at this time, avoid abrupt movement of his head from left to right and vice versa, and also will refer him to the ENT specialist as an outpatient if he is not better by the time he comes to the office, he may need to go for an Concepcion maneuver as a treatment for his vestibular dysfunction and rehabilitation. Discharge diagnoses: 1. Severe vertigo likely due to vestibular neuronitis/BPPV. 2. Mixed hyperlipidemia. 3. History of eczema. 4. History of acne vulgaris. 5. Spondylosis of the cervical spine status post anterior cervical discectomy with fusion. 6. History of anxiety. 7. History of colon polyps Patient Condition at Discharge: Stable Plan - Discharge Summary Discharge Rx Participant: Yes New Discharge Prescriptions: New methylPREDNISolone Dose Pack [Medrol Dose Pack] 4 mg PO DIRECTED #1 packet Scopolamine 1 mg/72 Hr Patch [TransDerm Scop] 1 patch TRANSDERM Q72H #2 patch Ondansetron Odt [Zofran Odt] 4 mg PO Q8HR PRN #30 tab PRN Reason: Nausea Meclizine [Antivert] 25 mg PO TID #90 tab Atorvastatin [Lipitor] 20 mg PO DAILY tab Continue ALPRAZolam [Xanax] 0.25 mg PO DAILY PRN PRN Reason: Anxiety Discharge Medication List ALPRAZolam [Xanax] 0.25 mg PO DAILY PRN 03/09/25 [History] Atorvastatin [Lipitor] 20 mg PO DAILY tab 03/10/25 [Rx] Meclizine [Antivert] 25 mg PO TID #90 tab 03/10/25 [Rx] Ondansetron Odt [Zofran Odt] 4 mg PO Q8HR PRN #30 tab 03/10/25 [Rx] Scopolamine 1 mg/72 Hr Patch [TransDerm Scop] 1 patch TRANSDERM Q72H #2 patch 03/10/25 [Rx] methylPREDNISolone Dose Pack [Medrol Dose Pack] 4 mg PO DIRECTED #1 packet 03/10/25 [Rx] Follow up Appointment(s)/Referral(s): Jayson Horvath MD [Primary Care Provider] - 1 Week (office closed, call for appointment.) Patient Instructions/Handouts: Vertigo (DC) Discharge Disposition: HOME SELF-CARE
== END 2025-03-10 15:38 | disposition home or self-care (01) ==
LOC: EC 17:38 → 1SOBS 21:56 → 5NMEDONC 03-09 01:15
PROVIDERS: ADMIT Internal Medicine; ATTEND Internal Medicine
DX: R42 Dizziness and giddiness (principal); R11.2 Nausea with vomiting, unspecified; H55.00 Unspecified nystagmus; H53.2 Diplopia; E78.2 Mixed hyperlipidemia; L70.0 Acne vulgaris; L30.9 Dermatitis, unspecified; G47.33 Obstructive sleep apnea (adult) (pediatric); N40.0 Benign prostatic hyperplasia without lower urinary tract symptoms; M47.812 Spondylosis without myelopathy or radiculopathy, cervical region; F41.9 Anxiety disorder, unspecified; Z79.899 Other long term (current) drug therapy; Z88.0 Allergy status to penicillin; Z87.891 Personal history of nicotine dependence; Z86.0100 Personal history of colon polyps, unspecified; Z98.1 Arthrodesis status
CPT/HCPCS: 96376; 96361 ×3; 96372; 96374; 96375; 99285; 36415; 80053 ×2; 83605; 84484; 85025 ×2; 81003; 70496; 70450; 70498; G0378 ×3; J2405; J1650; J1171; Q9967; J2919 ×2

== ENCOUNTER → 2025-04-07 | Outpatient (CLI) | payer BC ==
--- NOTE | 2025-04-08 08:07 | MR ---
INDICATION: Patient age:Male; 54 years old; Reason for study: H81.393 OTHER PERIPHERAL VERTIGO, BILATERAL; PHH. COMPARISON: CT brain 03/08/2025, CTA head and neck 03/08/2025. TECHNIQUE: Multi planar, multi sequence imaging was performed through the brain. The patient was then given 9 cc of Gadobutrol intravenously and multi planar, T1 fat-saturation images were obtained. FINDINGS: The llanos-white junctions, ventricular system, basal cisterns appear unremarkable. Age-appropriate cer ebral parenchymal volume. Diffusion-weighted imaging shows no evidence of restricted diffusion to sug gest acute/subacute infarct. Intracranial arterial flow voids are maintained. Midline structures show no abnormality. No FLAIR signal abnormalities. The susceptibility weighted images do not reveal any evidence for micro-hemorrhage. After administration of gadolinium, no abnormal enhancement is seen. The bone marrow signal is within normal limits. Partial visualization of cervical fusion hardware. Th e globes are unremarkable. Minimal mucosal thickening of the ethmoid sinuses. Inferior right maxillar y sinus T2 hyperintense 1.4 cm mucous retention cyst. IMPRESSION: No evidence of intracranial mass, acute/subacute infarct, or abnormal enhancement. [facility], , 04/08/2025 8:05 AM
== END | disposition home or self-care (01) ==
LOC: RADMRIMAIN 15:57
PROVIDERS: ATTEND Internal Medicine
DX: H81.393 Other peripheral vertigo, bilateral (principal)
CPT/HCPCS: 70553; A9585